=== PATIENT | male | born 2000 | race Caucasian/White ===

== ENCOUNTER 2019-10-03 14:51 | Emergency (ER) | payer OTHER, SELFPAY ==
--- NOTE | ~2019-10-03 | XR_ITS ---
EXAMINATION: XR hand RT min 3V DATE: 10/03/2019 15:14 INDICATION: Right hand injury and pain. TECHNIQUE: 3 views of right hand were obtained. COMPARISON: None. FINDINGS: There is an oblique fracture of neck of fourth metacarpal. The distal fracture fragment dem onstrates impaction and 10 degrees palmar angulation. Joint spaces are normal. IMPRESSION: 1. Oblique fracture of neck of fourth metacarpal. Reviewed, dictated and finalized at location A.
[2019-10-03 15:05] VITALS: BP 132/74; PULSE 82; RESP 16; TEMP 36.8; O2SAT 98
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
== END 2019-10-03 15:48 | disposition home or self-care (01) ==
PROVIDERS: Emergency Provider Nurse Practitioner Family
DX: S62.334A Displaced fracture of neck of fourth metacarpal bone, right hand, initial encounter for closed fracture (principal); R03.0 Elevated blood-pressure reading, without diagnosis of hypertension; W22.8XXA Striking against or struck by other objects, initial encounter
CPT/HCPCS: 29130; 73130; 99214; G0463

== ENCOUNTER 2020-11-14 13:37 | Emergency (ER) | payer OTHER, SELFPAY ==
[2020-11-14 13:45] VITALS: BP 132/77; PULSE 99; RESP 18; TEMP 36.7; O2SAT 100
[2020-11-14 14:08] LABS: Add Urine Microscopic? NO; Appearance Urine Clear (Clear); Bilirubin Urine Negative (Negative); Blood Urine Negative (Negative); Color Urine Yellow (Yellow); Glucose Urine UA Negative (Negative); Ketones Urine Negative (Negative); Leukocyte Esterase Ur Negative LEU/UL (Negative); Nitrate Urine Negative (Negative); Protein Urine Negative (Negative); Specific Grav Ur 1.023 (1.001-1.035); Urobilinogen Urine Negative mg/dL (<2.0)
[2020-11-14] MEDS: cefTRIAXone 1 GM VIAL 0.5 GM IM (14:41)
[2020-11-14] MEDS: LIDOCAINE HCL 1% LOCAL INJ 20 ML VIAL 2.1 ML XX (14:41)
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
[2020-11-14 15:17] VITALS: BP 122/78; PULSE 70; RESP 18; O2SAT 99
== END 2020-11-14 15:19 | disposition home or self-care (01) ==
PROVIDERS: Emergency Medicine Emergency Medical Services; Emergency Provider Emergency Medicine
DX: N34.2 Other urethritis (principal); J45.909 Unspecified asthma, uncomplicated
CPT/HCPCS: 81003; 87491; 87591; 96372; 99283; J0696

== ENCOUNTER 2021-01-28 17:47 | Emergency (ER) | payer OTHER, SELFPAY ==
[2021-01-28 17:56] VITALS: BP 128/68; PULSE 87; RESP 18; TEMP 36.8; O2SAT 100
[2021-01-28 18:32] VITALS: BP 128/68; PULSE 87; RESP 16; TEMP 36.8; O2SAT 100
[2021-01-28 19:30] LABS: Add Urine Microscopic? YES; Appearance Urine Clear (Clear); Bacteria Urine Trace /hpf; Bilirubin Urine Negative (Negative); Blood Urine Negative (Negative); Color Urine Yellow (Yellow); Glucose Urine UA Negative (Negative); Ketones Urine Negative (Negative); Leukocyte Esterase Ur Negative LEU/UL (Negative); Mucus Urine Few /lpf; Nitrate Urine Negative (Negative); Protein Urine 1+ mg/dL (Negative); Squamous Epithelial Cell Urine Rare /hpf (Few); WBC Urine 0-3 /hpf
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
[2021-01-28] MEDS: cefTRIAXone 1 GM VIAL 0.5 GM IM (20:06)
[2021-01-28] MEDS: LIDOCAINE HCL 1% LOCAL INJ 20 ML VIAL (20:06)
[2021-01-28 20:17] VITALS: BP 123/88; PULSE 73; RESP 18; O2SAT 100
== END 2021-01-28 20:18 | disposition home or self-care (01) ==
PROVIDERS: Physician Assistant; Emergency Provider Emergency Medicine
DX: Z20.2 Contact with and (suspected) exposure to infections with a predominantly sexual mode of transmission (principal); J45.909 Unspecified asthma, uncomplicated
CPT/HCPCS: 81001; 87491; 87591; 87661; 96372; 99283; J0696

== ENCOUNTER 2021-02-22 23:30 | Emergency (ER) | payer OTHER, SELFPAY ==
--- NOTE | ~2021-02-22 | US_ITS ---
EXAMINATION: US scrotum doppler DATE: 02/23/2021 00:52 INDICATION: Testicular pain. TECHNIQUE: Grayscale and Doppler ultrasound images of the testes were obtained. COMPARISON: None. FINDINGS: The right testis measures 4.7 x 2.9 x 2.3 cm. The left testis measures 4.7 x 2.8 x 2.0 cm. There is a small calcification in left testis. There is normal vascular flow to both testes. The righ t epididymis is normal with normal vascular flow. The left epididymis is normal with normal vascular flow. There is no varicocele or hydrocele. IMPRESSION: 1. Normal testes. Reviewed, dictated and finalized at location A. IMPRESSION: 1. Normal testes.
[2021-02-22 23:33] VITALS: BP 148/90; PULSE 91; RESP 18; TEMP 37.1; O2SAT 99
--- NOTE | 2021-02-22 23:53 | PC.NURSE ---
states testicles are not swollen just sore x 2 weeks states pain causes numbness left leg
[2021-02-23 00:22] LABS: Add Urine Microscopic? YES; Amorphous Sediment Urine Few; Appearance Urine Cloudy (Clear); Bacteria Urine Trace /hpf; Bilirubin Urine Negative (Negative); Blood Urine Negative (Negative); Color Urine Yellow (Yellow); Glucose Urine UA Negative (Negative); Ketones Urine Negative (Negative); Leukocyte Esterase Ur Negative LEU/UL (Negative); Nitrate Urine Negative (Negative); Protein Urine Negative (Negative); Specific Grav Ur 1.017 (1.001-1.035); Urobilinogen Urine Negative mg/dL (<2.0)
[2021-02-23] MEDS: DOXYCYCLINE HYCLATE 100 MG TABLET PO (00:57)
[2021-02-23] MEDS: cefTRIAXone 1 GM VIAL 0.5 GM IM (00:58)
[2021-02-23] MEDS: LIDOCAINE HCL 1% LOCAL INJ 20 ML VIAL (00:58)
[2021-02-23] MEDS: metroNIDAZOLE 250 MG TABLET 2000 MG PO (00:58)
--- NOTE | 2021-02-23 01:07 | ED.GENADULT ---
HPI - General Adult General Chief complaint: Urogenital-Male Stated complaint: testicular pain Time Seen by Provider: 02/22/21 23:52 History of Present Illness HPI narrative: Patient 18-year-old gentleman who presents the emergency department with chief complaint of testicle pain. The patient reports that about a month ago he was seen in the emergency department and treated as a possible STI the patient reports he has had continual pain in his testicles particularly in the posterior aspect of the left testicle. Patient states pain is worse with movement denies any dysuria denies any penile discharge. Related Data Allergies Allergy/AdvReac Type Severity Reaction Status Date / Time No Known Allergies Allergy Verified 11/14/20 13:52 Review of Systems Review of Systems: A 10 system review of systems was completed on the patient and is negative except for what is stated in the HPI. Nursing and ancillary documentation was reviewed. PMFSH Past Medical History Medical History Asthma Surgical History Surgical History No significant past surgical history Family History Family History Father Alive and well Mother Alive and well Social History Social History Smoking status: Never smoker Additional smoking assessment comments: Attmepted to smoke but it gives him anxiety Alcohol intake: current Substance use: never Exam Narrative: GENERAL: Well-appearing, well-nourished, and in no acute distress. HEAD: Normocephalic, atraumatic. EYES: PERRLA and EOMI. ENT: Nares clear, no rhinorrhea or epistaxis. Mucous membranes moist. NECK: Supple. CHEST: Clear to auscultation. No respiratory distress. HEART: Regular rate and rhythm. No murmur heard. Normal peripheral pulses. ABDOMEN: Soft, nontender, nondistended, normal active bowel sounds. : There is tenderness to palpation in the scrotum there is no erythema there is no fluctuance there is no crepitance there is no necrotic tissue. EXTREMITIES: Normal range of motion. No edema. SKIN: Warm, dry, no rash. NEURO: No focal deficits. Alert and oriented x3. PSYCH: Normal mood and affect. Course Vital Signs Vital signs: Vital Signs Temperature 37.1 C 02/22/21 23:33 Pulse Rate 91 02/22/21 23:33 Respiratory Rate 18 02/22/21 23:33 Blood Pressure 148/90 H 02/22/21 23:33 Pulse Oximetry 99 02/22/21 23:33 Temperature 37.1 C 02/22/21 23:33 Pulse Rate 91 02/22/21 23:33 Respiratory Rate 18 02/22/21 23:33 Blood Pressure 148/90 H 02/22/21 23:33 Pulse Oximetry 99 02/22/21 23:33 Medical Decision Making Vital Signs Vital Signs: Vital Signs Temperature 37.1 C 02/22/21 23:33 Pulse Rate 91 02/22/21 23:33 Respiratory Rate 18 02/22/21 23:33 Blood Pressure 148/90 H 02/22/21 23:33 Pulse Oximetry 99 02/22/21 23:33 Temperature 37.1 C 02/22/21 23:33 Pulse Rate 91 02/22/21 23:33 Respiratory Rate 18 02/22/21 23:33 Blood Pressure 148/90 H 02/22/21 23:33 Pulse Oximetry 99 02/22/21 23:33 Lab Data Labs: Lab Results 02/23/21 02/23/21 Range/Units 00:05 00:05 Urine Color Yellow (Yellow) Urine Appearance Cloudy H (Clear) Urine pH 8.0 (5.0-9.0) Ur Specific [place] 1.017 (1.001-1.035) Urine Protein Negative (Negative) mg/dL Urine Glucose (UA) Negative (Negative) mg/dL Urine Ketones Negative (Negative) mg/dL Ur Blood (Man) Negative (Negative) Urine Nitrate Negative (Negative) Urine Bilirubin Negative (Negative) Urine Urobilinogen Negative (<2.0) mg/dL Leukocyte Esterase Rfl Negative (Negative) MIRIAN/UL Urine RBC 3-5 H (0-2) /hpf Amorphous Sediment Few H (None) Urine Bacteria Trace /hpf C.trachomatis RN
[2021-02-23 01:33] VITALS: BP 129/82; PULSE 86; RESP 18; O2SAT 99
== END 2021-02-23 01:39 | disposition home or self-care (01) ==
PROVIDERS: Emergency Provider Emergency Medicine
DX: N34.2 Other urethritis (principal); J45.909 Unspecified asthma, uncomplicated
CPT/HCPCS: 76870; 81001; 87491; 87591; 93976; 96372; 99284; A9270; J0696

== ENCOUNTER 2021-03-28 18:45 | Emergency (ER) | payer OTHER, SELFPAY ==
--- NOTE | ~2021-03-28 | XR_ITS ---
EXAMINATION: XR chest 2V 03/28/2021 19:23 INDICATION: Midsternal chest pain and cough PROCEDURE: 2 view chest COMPARISON: No prior studies for comparison. FINDINGS: The lungs are clear. The cardiomediastinal silhouette is within normal limits. There are no pleural effusions. There is no pneumothorax suspected. IMPRESSION: 1: NO ACUTE CARDIOPULMONARY DISEASE. Reviewed, dictated and finalized at location A. KJACK DEALER
[2021-03-28 18:47] VITALS: BP 133/90; PULSE 88; RESP 16; TEMP 36.5; O2SAT 99
--- NOTE | 2021-03-28 18:52 | ECG_ITS ---
Measurements Intervals [place] Rate: 87 P: 61 [place]: 132 QRS: 74 QRSD: 106 T: 36 QT: 346 QTc: 417 Interpretive Statements SINUS RHYTHM NORMAL ECG Electronically Signed On 03-29-2021 9:24:05 HEAD OF STOCK by Frank Sellers D.O.
[2021-03-28 19:20] LABS: Basophils Absolute Auto 0.1 K/mm3 (0.0-0.1); Basophils Percent Auto 0.5 % (0.2-1.2); Eosinophils Absolute Auto 0.3 K/mm3 (0-0.3); Eosinophils Percent Auto 2.8 % (0-4.4); Hematocrit 45.2 % (42.0-52.0); Hemoglobin 16.4 g/dL (14.0-18.0); Immature Granulocyte Absolute 0.04 K/mm3 (0.00-0.031); Immature Granulocyte Percent A 0.4 % (0-0.5); Lymphocytes Absolute Auto 2.07 K/mm3 (0.9-3.2); Lymphocytes Percent Auto 20.9 % (18.3-44.2); Mean Corpuscular HGB Conc 36.3 g/dl (32-36); Mean Corpuscular Hemoglobin 32.8 pg (26-34); Mean Corpuscular Volume 90.4 fl (80-100); Mean Platelet Volume 10.4 fl (7.4-10.4); Monocytes Absolute Auto 0.8 K/mm3 (0.1-0.6); Monocytes Percent Auto 7.9 % (2.6-8.5); Neutrophils Absolute Auto 6.7 K/mm3 (1.3-6.7); Neutrophils Percent Auto 67.5 % (45.5-73.1); Platelet Count Result 286 k/mm3 (150-375); Red Cell Distribution Width 11.9 % (11.5-14.5); White Blood Count 9.9 K/mm3 (4.5-10.0)
[2021-03-28 19:26] LABS: Partial Thromboplastin Time 27.8 SECONDS (22.3-36.8); Prothrombin Time 12.6 Seconds (11.1-14.7)
[2021-03-28 19:28] LABS: Alanine Aminotransferase 24 U/L (4-50); Albumin Level 4.6 g/dL (3.5-5.1); Alkaline Phosphatase 150 U/L (38-126); Anion Gap 8 mmol/L (8-16); Aspartate Amino Transferase 29 U/L (17-59); Bilirubin,Total 1.2 mg/dL (0.2-1.3); Blood Urea Nitrogen 12 mg/dL (9-20); Calcium 9.6 mg/dL (8.4-10.2); Carbon Dioxide 31 mmol/L (22-30); Chloride 102 mmol/L (98-107); Estimated CRCL calculation 99 ml/min; Estimated Glomerular Filt Rate > 60; Glucose 112 mg/dL (65-110); Lipase 48 U/L (23-300); Potassium 3.3 mmol/L (3.4-5.0); Sodium 141 mmol/L (137-145)
[2021-03-28 19:36] VITALS: PULSE 103
[2021-03-28 19:39] LABS: Troponin I < 0.012 ng/mL (0.000-0.034)
--- NOTE | 2021-03-28 19:46 | ED.CHESTPAIN ---
HPI - Chest Pain General Chief Complaint: Chest Pain <Hayde Morrell PA-C - Last Filed: 03/28/21 19:51> Stated Complaint: chest pain <GHADA Sosa Last Filed: 03/28/21 19:51> Time Seen by Provider: 03/28/21 19:09 <Hayde Morrell PA-C - Last Filed: 03/28/21 19:51> Source: patient <Hayde GHADA Doyle Last Filed: 03/28/21 19:51> Mode of arrival: ambulatory <GHADA Sosa Last Filed: 03/28/21 19:51> Limitations: no limitations <GHADA Sosa Last Filed: 03/28/21 19:51> History of Present Illness HPI narrative: This is a 20-year-old male that presents the emergency department for an episode of chest pain a couple of hours prior to arrival. Reports a dull ache in the chest that lasted about 10 minutes. Resolved without intervention. He was just sitting on his couch when it happened. No associated symptoms. Denies fever, cough, shortness of breath, or lower extremity edema. <Hayde Morrell PA-C - Last Filed: 03/28/21 19:51> Related Data Home Medications: Home Medications Medication Instructions Recorded Confirmed No Home Medications 03/28/21 03/28/21 <Hayde Morrell PA-C - Last Filed: 03/28/21 19:51> Allergies/Adverse Reactions: Allergies Allergy/AdvReac Type Severity Reaction Status Date / Time No Known Allergies Allergy Verified 03/28/21 18:56 <GHADA Sosa Last Filed: 03/28/21 19:51> Review of Systems Review of Systems: CONSTITUTIONAL: Denies fever CARDIOVASCULAR: Denies current chest pain RESPIRATORY: Denies cough or dyspnea. <GHADA Sosa Last Filed: 03/28/21 19:51> All systems reviewed & are unremarkable except as noted in HPI and below <GHADA Sosa Last Filed: 03/28/21 19:51> [facility] Past Medical History Medical History: Medical History Asthma <Hayde Morrell PA-C - Last Filed: 03/28/21 19:51> Surgical History Surgical History: Surgical History No significant past surgical history <Hayde Morrell PA-C - Last Filed: 03/28/21 19:51> Family History Family History: Family History Father Alive and well Mother Alive and well <Hayde Morrell PA-C - Last Filed: 03/28/21 19:51> Social History Social History: Social History Smoking status: Never smoker Additional smoking assessment comments: Attmepted to smoke but it gives him anxiety Alcohol intake: current Substance use: never <Hayde Morrell PA-C - Last Filed: 03/28/21 19:51> Exam Narrative: GENERAL: Well-appearing, well-nourished, and in no acute distress. HEAD: Normocephalic, atraumatic. EYES: EOMI. CHEST: Clear to auscultation. No respiratory distress. No wheezes rales or rhonchi HEART: Regular rate and rhythm. No murmur heard. Normal peripheral pulses. ABDOMEN: Soft, nontender, nondistended, normal active bowel sounds. EXTREMITIES: Normal range of motion. No edema. SKIN: Warm, dry, no rash. NEURO: No focal deficits. Alert and oriented x3. PSYCH: Normal mood and affect <Hayde Morrell PA-C - Last Filed: 03/28/21 19:51> Course CHEMISTRY LABORATORY TECHNICIAN/PA Physician Supervision I did not see this patient nor was the care plan discussed with me. I was available for evaluation and consultation, I agree with the documentation <Marco A Lockwood MD - Last Filed: 03/28/21 22:08> Vital Signs Vital signs: Vital Signs Temperature 36.5 C 03/28/21 18:47 Pulse Rate 88 03/28/21 18:47 Respiratory Rate 16 03/28/21 18:47 Blood Pressure 133/90 03/28/21 18:47 Pulse Oximetry 99 03/28/21 18:47 Temperature 36.6 C 03/28/21 20:03 Pulse Rate 82 03/28/21 20:03 Respiratory Rate 16 03/28/21 20:03 Blood Pressure 139/95 H 1
[2021-03-28 20:03] VITALS: BP 139/95; PULSE 82; RESP 16; TEMP 36.6; O2SAT 98
[2021-03-28] MEDS: POTASSIUM CHLORIDE 20 MEQ TABLET 40 MEQ PO (20:03)
== END 2021-03-28 20:33 | disposition home or self-care (01) ==
PROVIDERS: Emergency Medicine; Emergency Provider Emergency Medicine
DX: R07.9 Chest pain, unspecified (principal); E87.6 Hypokalemia; J45.909 Unspecified asthma, uncomplicated
CPT/HCPCS: 36415; 71046; 80053; 83690; 84484; 85025; 85610; 85730; 93005; 99284; A9270

== ENCOUNTER 2021-05-16 19:11 | Emergency (ER) | payer OTHER, SELFPAY ==
--- NOTE | ~2021-05-16 | XR_ITS ---
EXAMINATION: XR nasal bones min 3V EXAM DATE: 05/16/2021 20:53 INDICATION: pain status post fall, nasal injury. TECHNIQUE: Frontal, bilateral lateral projections of the nasal bones. There are no prior studies for comparison. FINDINGS: No acute nasal bone fracture. No radiopaque foreign bodies identified. IMPRESSION: No acute nasal bone fracture. Reviewed, dictated and finalized at location . PATIONAL HEALTH NURSE SUPERVISOR
[2021-05-16 19:39] VITALS: BP 135/81; PULSE 94; RESP 16; TEMP 36.7; O2SAT 99
--- NOTE | 2021-05-16 20:43 | ED.GENADULT ---
HPI - General Adult General Chief complaint: Head Injury Stated complaint: nasal injury Time Seen by Provider: 05/16/21 20:43 History of Present Illness HPI narrative: Patient 18-year-old gentleman who presents the emergency department with chief complaint of nasal injury. Patient reports last night he fell patient reports that his nose is deformed he had some nasal bleeding last night the patient denies loss of consciousness denies any other injuries. Patient reports symptoms are worse with movement and improved with rest Related Data Allergies Allergy/AdvReac Type Severity Reaction Status Date / Time No Known Allergies Allergy Verified 05/16/21 19:42 Review of Systems Review of Systems: A 10 system review of systems was completed on the patient and is negative except for what is stated in the HPI. Nursing and ancillary documentation was reviewed. PMFSH Past Medical History Medical History Asthma Surgical History Surgical History No significant past surgical history Family History Family History Father Alive and well Mother Alive and well Social History Social History Smoking status: Never smoker Additional smoking assessment comments: Attmepted to smoke but it gives him anxiety Alcohol intake: current Substance use: never Exam Narrative: GENERAL: Well-appearing, well-nourished, and in no acute distress. HEAD: Normocephalic, atraumatic. EYES: PERRLA and EOMI. ENT: Nares clear, no rhinorrhea. Mucous membranes moist. There is dried blood in the nostril no septal hematoma, there is a deformity of the nasal structure NECK: Supple. CHEST: Clear to auscultation. No respiratory distress. HEART: Regular rate and rhythm. No murmur heard. Normal peripheral pulses. ABDOMEN: Soft, nontender, nondistended, normal active bowel sounds. EXTREMITIES: Normal range of motion. No edema. SKIN: Warm, dry, no rash. NEURO: No focal deficits. Alert and oriented x3. PSYCH: Normal mood and affect. Course Vital Signs Vital signs: Vital Signs Temperature 36.7 C 05/16/21 19:39 Pulse Rate 94 05/16/21 19:39 Respiratory Rate 16 05/16/21 19:39 Blood Pressure 135/81 05/16/21 19:39 Pulse Oximetry 99 05/16/21 19:39 Temperature 36.7 C 05/16/21 19:39 Pulse Rate 94 05/16/21 19:39 Respiratory Rate 16 05/16/21 19:39 Blood Pressure 135/81 05/16/21 19:39 Pulse Oximetry 99 05/16/21 19:39 Medical Decision Making Vital Signs Vital Signs: Vital Signs Temperature 36.7 C 05/16/21 19:39 Pulse Rate 94 05/16/21 19:39 Respiratory Rate 16 05/16/21 19:39 Blood Pressure 135/81 05/16/21 19:39 Pulse Oximetry 99 05/16/21 19:39 Temperature 36.7 C 05/16/21 19:39 Pulse Rate 94 05/16/21 19:39 Respiratory Rate 16 05/16/21 19:39 Blood Pressure 135/81 05/16/21 19:39 Pulse Oximetry 99 05/16/21 19:39 Discharge Plan Discharge Clinical Impression: Contusion of nose Patient Disposition: Home, Self-Care Condition: Stable Instructions: Antibiotic Form, Nasal Fracture (ED) Additional Instructions: The x-ray shows no evidence of displaced fracture. Prescriptions: New cephalexin 500 mg capsule 500 mg PO QID 7 Days Qty: 28 RF: 0 Follow-up/Referrals: Rashel Novak MD [Physician] - PHYSICIAN,PROFESSIONAL WRESTLER [Primary Care Provider] - Enmanuel Ellison MD [Physician] - Time of Disposition: 21:02
[2021-05-16 21:23] VITALS: BP 135/93; PULSE 83; RESP 16; O2SAT 97
== END 2021-05-16 21:24 | disposition home or self-care (01) ==
LOC: ANHED 21:15
PROVIDERS: Emergency Provider Emergency Medicine
DX: S00.33XA Contusion of nose, initial encounter (principal); J45.909 Unspecified asthma, uncomplicated; W19.XXXA Unspecified fall, initial encounter
CPT/HCPCS: 70160; 99283

== ENCOUNTER 2021-06-18 05:57 | Emergency (ER) | payer OTHER, SELFPAY ==
--- NOTE | ~2021-06-18 | XR_ITS ---
EXAMINATION: XR chest 2V DATE: 06/18/2021 06:17 INDICATION: Chest pain TECHNIQUE: PA and lateral views of the chest are obtained. COMPARISON: 03/28/2021 FINDINGS: The lungs are free of acute opacities. There is no pleural effusion or pneumothorax. The ca rdiomediastinal silhouette is normal. The visualized bones and soft tissues are unremarkable. IMPRESSION: 1. No acute cardiopulmonary abnormality. Reviewed, dictated and finalized at location A. T RELATION OFFICER
--- NOTE | 2021-06-18 06:04 | ECG_ITS ---
Measurements Intervals [place] Rate: 83 P: 61 OK: 140 QRS: 56 QRSD: 107 T: 25 QT: 332 QTc: 390 Interpretive Statements SINUS RHYTHM ATRIAL PREMATURE COMPLEXES BORDERLINE ECG Electronically Signed On 06-18-2021 9:00:02 RECREATION FACILITY ATTENDANT by Frank Sellers D.O.
[2021-06-18 06:05] VITALS: BP 125/84; PULSE 82; RESP 18; TEMP 36.4; O2SAT 100
[2021-06-18 06:11] VITALS: PULSE 88
[2021-06-18] MEDS: ASPIRIN 81 MG CHEWABLE TABLET 324 MG PO (06:18)
[2021-06-18 06:44] LABS: Basophils Percent Auto 0.4 % (0.2-1.2); Eosinophils Absolute Auto 0.2 K/mm3 (0-0.3); Eosinophils Percent Auto 1.6 % (0-4.4); Hematocrit 43.7 % (42.0-52.0); Hemoglobin 15.8 g/dL (14.0-18.0); Immature Granulocyte Absolute 0.04 K/mm3 (0.00-0.031); Immature Granulocyte Percent A 0.4 % (0-0.5); Lymphocytes Absolute Auto 2.29 K/mm3 (0.9-3.2); Lymphocytes Percent Auto 23.6 % (18.3-44.2); Mean Corpuscular HGB Conc 36.2 g/dl (32-36); Mean Corpuscular Hemoglobin 32.6 pg (26-34); Mean Corpuscular Volume 90.3 fl (80-100); Monocytes Absolute Auto 0.7 K/mm3 (0.1-0.6); Monocytes Percent Auto 7.2 % (2.6-8.5); Neutrophils Absolute Auto 6.5 K/mm3 (1.3-6.7); Neutrophils Percent Auto 66.8 % (45.5-73.1); Platelet Count Result 257 k/mm3 (150-375); Red Blood Count 4.84 M/mm3 (4.6-6.20); Red Cell Distribution Width 11.9 % (11.5-14.5); White Blood Count 9.7 K/mm3 (4.5-10.0)
[2021-06-18 06:55] LABS: Prothrombin Time 13.1 Seconds (11.1-14.7)
[2021-06-18 06:56] LABS: Partial Thromboplastin Time 29.1 SECONDS (22.3-36.8)
[2021-06-18 06:58] LABS: Alanine Aminotransferase 31 U/L (4-50); Albumin Level 4.6 g/dL (3.5-5.1); Alkaline Phosphatase 127 U/L (38-126); Anion Gap 7 mmol/L (8-16); Aspartate Amino Transferase 32 U/L (17-59); Bilirubin,Total 1.6 mg/dL (0.2-1.3); Blood Urea Nitrogen 12 mg/dL (9-20); Calcium 9.8 mg/dL (8.4-10.2); Carbon Dioxide 27 mmol/L (22-30); Chloride 101 mmol/L (98-107); Estimated CRCL calculation 113 ml/min; Estimated Glomerular Filt Rate > 60; Glucose 104 mg/dL (65-110); Lipase 68 U/L (23-300); Potassium 3.9 mmol/L (3.4-5.0); Sodium 135 mmol/L (137-145)
--- NOTE | 2021-06-18 07:00 | ED.CHESTPAIN ---
HPI - Chest Pain General Chief Complaint: Chest Pain Stated Complaint: chest pain since midnight Time Seen by Provider: 06/18/21 06:52 Source: patient Mode of arrival: ambulatory Limitations: no limitations History of Present Illness HPI narrative: Pt presents with dull left sided CP that started at 1200 midnight and lasted about 20 minutes and resolved then returned a couple of hours later. Pt says it has now resoved agian. Pt denies precipitating or relieving factors. MD complaint: chest pain Prior episodes: No Onset: during rest Pain location: left chest Pain radiation: none Severity: mild Quality: dull Relieving factors: nothing Exacerbating factors: nothing Treatment prior to arrival: aspirin Risk Factors Coronary artery disease risk factors: none Thoracic aortic dissection risk factors: none Related Data Allergies Allergy/AdvReac Type Severity Reaction Status Date / Time No Known Allergies Allergy Verified 06/18/21 06:10 Review of Systems Constitutional: Constitutional: Reports as per HPI [facility] Past Medical History Medical History Asthma Surgical History Surgical History No significant past surgical history Family History Family History Father Alive and well Mother Alive and well Social History Social History Smoking status: Never smoker Additional smoking assessment comments: Attmepted to smoke but it gives him anxiety Alcohol intake: current Substance use: never Exam Const: General: no acute distress Orientation/consciousness: patient oriented x3 HENMT: Head: normal to inspection Eyes: Conjunctivae: conjunctivae normal EOM: EOMs intact bilaterally Chest: Chest palpation & inspection: tenderness (tender left shest to palpation which reproduces pain) Resp: Effort & Inspection: normal respiratory effort Cardio: Rate: regular rate Rhythm: regular rhythm GI: GI Palp: Yes Soft to palpation Auscultation: normal bowel sounds Skin: General skin exam: normal color Rashes: no rashes Neuro: General: patient oriented x3, moves all extremities, no focal motor deficits and CN's II-XI intact bilaterally Speech: normal speech Extrem: General: normal to inspection Psych: Appearance: grossly normal Mental Status: mental status grossly normal Affect: normal affect Thought content: Yes Normal thought content present Course Course Emergency Course: Pt pain free felling better. Has recently stopped drinking and believes that's the cause of his slightly elevated LFT's will follow up for recheck. Vital Signs Vital signs: Vital Signs Temperature 97.6 F 06/18/21 06:05 Pulse Rate 82 06/18/21 06:05 Respiratory Rate 18 06/18/21 06:05 Blood Pressure 125/84 06/18/21 06:05 Pulse Oximetry 100 06/18/21 06:05 Temperature 97.6 F 06/18/21 06:05 Pulse Rate 90 06/18/21 07:21 Respiratory Rate 18 06/18/21 07:21 Blood Pressure 141/68 H 06/18/21 07:21 Pulse Oximetry 98 06/18/21 07:21 MDM - Chest Pain Lab Data Result diagrams: 06/18/21 06:24 06/18/21 06:24 Labs: Lab Results 06/18/21 06/18/21 06/18/21 Range/Units 06:24 06:24 06:24 WBC 9.7 (4.5-10.0) K/mm3 RBC 4.84 (4.6-6.20) M/mm3 Hgb 15.8 (14.0-18.0) g/dL Hct 43.7 (42.0-52.0) % MCV 90.3 (80-100) fl MCH 32.6 (26-34) pg MCHC 36.2 H (32-36) g/dl RDW 11.9 (11.5-14.5) % Plt Count 257 (150-375) k/mm3 MPV 11.0 H (7.4-10.4) fl Immature Gran % (Auto) 0.4 (0-0.5) % Neut % (Auto) 66.8 (45.5-73.1) % Lymph % (Auto) 23.6 (18.3-44.2) % Jerome % (Auto) 7.2 (2.6-8.5) % Eos % (Auto) 1.6 (0-4.4) % Baso % (Auto) 0.4 (0.2-1.2) % Lymph # (Auto) 2.29 (0.9-3.2) K/mm3 Jerome # (
[2021-06-18 07:09] LABS: Troponin I < 0.012 ng/mL (0.000-0.034)
[2021-06-18] MEDS: KETOROLAC 15 MG/ML VIAL (*BKC) IV PUSH (07:19)
[2021-06-18 07:21] VITALS: BP 141/68; PULSE 90; RESP 18; O2SAT 98
== END 2021-06-18 07:47 | disposition home or self-care (01) ==
PROVIDERS: Emergency Medicine; Emergency Provider Emergency Medicine
DX: R07.89 Other chest pain (principal); J45.909 Unspecified asthma, uncomplicated
CPT/HCPCS: 36415; 71046; 80053; 83690; 84484; 85025; 85610; 85730; 93005; 96374; 99284; A9270; J1885

== ENCOUNTER 2021-06-20 04:33 | Emergency (ER) | payer OTHER, SELFPAY ==
[2021-06-20 04:39] VITALS: BP 150/79; PULSE 88; RESP 18; TEMP 36.7; O2SAT 99
--- NOTE | 2021-06-20 05:02 | ED.MALEGU ---
HPI - Male Genitourinary General Chief complaint: Urogenital-Male Stated complaint: UTI Time Seen by Provider: 06/20/21 04:44 History of Present Illness HPI Narrative: Patient is a 20-year-old male who presents ER with testicular pain. Bilateral. Ongoing for 4 days. Reports he was seen in the ER for chest pain few days ago and forgot to see anything about it. Reports he has been having some discomfort at the tip of his penis when he urinates. No urethral discharge. Last sexual activity was 3 weeks ago. Unsure if you were condom. Reports he underwent STD testing in a clinic in [place] 1 and half weeks ago. Over the time he received antibiotics for possible infection. Reports he was then given a phone call that he tested negative for gonorrhea and chlamydia. No swelling to his testicles. He does have discomfort that goes into his thighs related to this. No low back pain or flank pain. No urinary frequency urgency or dysuria. No blood in urine. Denies abdominal pain. Related Data Allergies Allergy/AdvReac Type Severity Reaction Status Date / Time No Known Allergies Allergy Verified 06/20/21 05:36 Review of Systems Review of Systems: All systems reviewed & are unremarkable except as noted in HPI and below Constitutional: Constitutional: Denies chills, Denies fever(s) and Denies weakness Cardiovascular: Cardiovascular: Denies chest pain, Denies rapid heart rate and Denies radiating jaw, neck or arm pain Respiratory: Respiratory: Denies cough and Denies dyspnea Gastrointestinal: Gastrointestinal: Denies abdominal pain, Denies nausea and Denies vomiting Genitourinary: Genitourinary: Denies hematuria, Denies genital lesions, Reports dysuria, Denies penile discharge, Reports testicular pain and Denies urinary frequency PMFSH Past Medical History Medical History Asthma Surgical History Surgical History No significant past surgical history Family History Family History Father Alive and well Mother Alive and well Social History Social History Smoking status: Never smoker Additional smoking assessment comments: Attmepted to smoke but it gives him anxiety Alcohol intake: current Substance use: never Exam Narrative: GENERAL: Well-appearing, well-nourished, and in no acute distress. HEAD: Normocephalic, atraumatic. ENT: Mucous membranes moist. CHEST: Clear to auscultation. No respiratory distress. HEART: Regular rate and rhythm. Normal peripheral pulses. ABDOMEN: Soft, nontender, nondistended. No CVA tenderness. : Normal-appearing external genitalia. Penis normal without lesions and no urethral discharge. Testicles nontender and nonedematous bilaterally. No abnormality to the scrotum. EXTREMITIES: Normal range of motion. No edema. SKIN: Warm, dry, no rash. NEURO: Alert and oriented x3. Course Course Emergency Course: Normal exam. Normal UA. Patient denies any back discomfort or trauma. Recommend follow-up with a primary care physician who can give specialty referral if need be. Patient will continue to wear tighter fitting underwear and take anti-inflammatory medications. Vital Signs Vital signs: Vital Signs Temperature 98.0 F 06/20/21 04:39 Pulse Rate 88 06/20/21 04:39 Respiratory Rate 18 06/20/21 04:39 Blood Pressure 150/79 H 06/20/21 04:39 Pulse Oximetry 99 06/20/21 04:39 Temperature 98.0 F 06/20/21 04:39 Pulse Rate 88 06/20/21 04:39 Respiratory Rate 18 06/20/21 04:39 Blood Pressure 150/79 H 06/20/21 04:39 Pulse Oximetry 99 06/20/21 04:39 MDM - Male Genitourinary Lab Data Labs: Lab Results 06/20/21 Range/Units 05:19 Urine Color Straw (Yellow) Urine Appearance Clear (Clear) Urine pH 6.0
[2021-06-20 05:44] LABS: Add Urine Microscopic? NO; Appearance Urine Clear (Clear); Bilirubin Urine Negative (Negative); Blood Urine Negative (Negative); Color Urine Straw (Yellow); Glucose Urine UA Negative (Negative); Ketones Urine Negative (Negative); Leukocyte Esterase Ur Negative LEU/UL (Negative); Nitrate Urine Negative (Negative); Protein Urine Negative (Negative); Specific Grav Ur 1.009 (1.001-1.035); Urobilinogen Urine Negative mg/dL (<2.0)
[2021-06-20 06:38] VITALS: BP 121/81; PULSE 87; RESP 16; O2SAT 98
== END 2021-06-20 06:10 | disposition home or self-care (01) ==
PROVIDERS: Emergency Provider Emergency Medicine
DX: N50.819 Testicular pain, unspecified (principal); J45.909 Unspecified asthma, uncomplicated
CPT/HCPCS: 81003; 99283

== ENCOUNTER 2021-06-30 20:26 | Emergency (ER) | payer OTHER, SELFPAY ==
--- NOTE | ~2021-06-30 | US_ITS ---
US scrotum doppler DATE: 06/30/2021 22:51 INDICATION: Bilateral groin pain for 2 weeks TECHNIQUE: Real-time and color flow imaging and Doppler analysis of the scrotal contents COMPARISON: 02/23/2021 scrotal ultrasound/Doppler examination FINDINGS: The right testicle measures 4.6 x 3.2 x 2.1 cm. The left testicle measures 3.9 x 3.3 x 1.8 cm. There is a benign calcification of the left testicle. No testicular mass lesion or torsion is evident. There is homogeneous echotexture of the testicles an d symmetric color flow signal and Doppler signal at the testicles. There is a left epididymal cyst measuring up to 6 mm. Mild left varicocele. No hydroceles. IMPRESSION: No testicular torsion or testicular mass lesion. Reviewed, dictated and finalized at Location [facility]. Reviewed, dictated and finalized at location A. PEDDLER
[2021-06-30 20:35] VITALS: BP 153/87; PULSE 85; RESP 18; TEMP 36.7; O2SAT 100
[2021-06-30 21:33] LABS: Add Urine Microscopic? NO; Appearance Urine Clear (Clear); Bilirubin Urine Negative (Negative); Blood Urine Negative (Negative); Color Urine Straw (Yellow); Glucose Urine UA Negative (Negative); Ketones Urine Negative (Negative); Leukocyte Esterase Ur Negative LEU/UL (Negative); Nitrate Urine Negative (Negative); Protein Urine Negative (Negative); Specific Grav Ur 1.012 (1.001-1.035); Urobilinogen Urine Negative mg/dL (<2.0)
--- NOTE | 2021-06-30 21:50 | ED.MALEGU ---
HPI - Male Genitourinary General Chief complaint: Urogenital-Male <Emilia Trivedi PA-C - Last Filed: 07/01/21 04:45> Stated complaint: request check up <GHADA Nieto Last Filed: 07/01/21 04:45> Time Seen by Provider: 06/30/21 21:05 <Emilia Trivedi PA-C - Last Filed: 07/01/21 04:45> Source: patient <GHADA Nieto Last Filed: 07/01/21 04:45> Mode of arrival: ambulatory <GHADA Nieto Last Filed: 07/01/21 04:45> Limitations: no limitations <GHADA Nieto Last Filed: 07/01/21 04:45> History of Present Illness HPI Narrative: Patient is a 21-year-old male who presents ED with bilateral testicular pain x1 month, worse in the right testicle. Patient reports having intermittent pain over the last month and states the pain lasts anywhere 30 minutes to 2 hours at a time. He was seen in the ED for this on 06/20 and given ibuprofen with recommendation to follow-up with his PCP for further evaluation and possibly Urology referral. Patient has been taking ibuprofen without relief of the pain. He states the pain will occasionally radiate down his bilateral lower extremities. He reports increased pain over the last couple days, and an area of swelling in his right superior lateral testicle, which prompted him to return to the ED. Patient denies any fevers, chills, abdominal pain, nausea, vomiting, diarrhea. Patient is sexually active and last had intercourse 3 days ago. Patient was empirically treated for STDs in the beginning of June and reports his testing returned negative at that time. He denies any current dysuria, hematuria, genital lesions, or penile discharge. <GHADA Nieto Last Filed: 07/01/21 04:45> Related Data Allergies/Adverse reactions: Allergies Allergy/AdvReac Type Severity Reaction Status Date / Time No Known Allergies Allergy Verified 06/20/21 05:36 <GHADA Nieto Last Filed: 07/01/21 04:45> Review of Systems Review of Systems: CONSTITUTIONAL: Denies fever, chills, or sweats. CARDIOVASCULAR: Denies chest pain. RESPIRATORY: Denies cough or dyspnea. GASTROINTESTINAL: Denies abdominal pain, nausea, vomiting, or diarrhea. GENITOURINARY: Reports testicular pain and swelling. Denies dysuria, hematuria, penile discharge, genital lesions. SKIN: Denies rash or itching. MUSCULOSKELETAL: Denies back pain, joint pain, or myalgia. NEUROLOGIC: Denies headache, numbness, or weakness. <Emilia Trivedi PA-C - Last Filed: 07/01/21 04:45> All systems reviewed & are unremarkable except as noted in HPI and below <Emilia Trivedi PA-C - Last Filed: 07/01/21 04:45> PMFSH Past Medical History Medical History: Medical History Asthma <Emilia Trivedi PA-C - Last Filed: 07/01/21 04:45> Surgical History Surgical History: Surgical History No significant past surgical history <Emilia Trivedi PA-C - Last Filed: 07/01/21 04:45> Family History Family History: Family History Father Alive and well Mother Alive and well <Emilia Trivedi PA-C - Last Filed: 07/01/21 04:45> Social History Social History: Social History Smoking status: Never smoker Additional smoking assessment comments: Attmepted to smoke but it gives him anxiety Alcohol intake: current Substance use: never <Emilia Trivedi PA-C - Last Filed: 07/01/21 04:45> Exam Narrative: GENERAL: Well appearing, well-nourished, non-toxic, in no acute distress. HEAD: Normocephalic, atraumatic. NECK: Supple. No adenopathy, no masses. RESPIRATORY: Airway patent, respirations nonlabored. Clear to auscultation bilaterally, no rales, rhonchi, wheezing. CARDIOVASCULAR: Regular rate and rhythm without murmurs, rubs, or gallops. ABDOMIN
[2021-06-30 21:58] LABS: Basophils Percent Auto 0.5 % (0.2-1.2); Eosinophils Absolute Auto 0.2 K/mm3 (0-0.3); Eosinophils Percent Auto 2.4 % (0-4.4); Hematocrit 43.6 % (42.0-52.0); Hemoglobin 15.7 g/dL (14.0-18.0); Immature Granulocyte Absolute 0.02 K/mm3 (0.00-0.031); Immature Granulocyte Percent A 0.2 % (0-0.5); Lymphocytes Absolute Auto 1.94 K/mm3 (0.9-3.2); Lymphocytes Percent Auto 23.3 % (18.3-44.2); Mean Corpuscular Hemoglobin 32.8 pg (26-34); Mean Corpuscular Volume 91.2 fl (80-100); Mean Platelet Volume 10.5 fl (7.4-10.4); Monocytes Absolute Auto 0.6 K/mm3 (0.1-0.6); Monocytes Percent Auto 7.6 % (2.6-8.5); Neutrophils Absolute Auto 5.5 K/mm3 (1.3-6.7); Platelet Count Result 256 k/mm3 (150-375); Red Blood Count 4.78 M/mm3 (4.6-6.20); Red Cell Distribution Width 11.9 % (11.5-14.5); White Blood Count 8.3 K/mm3 (4.5-10.0)
[2021-06-30 22:07] LABS: Alanine Aminotransferase 25 U/L (4-50); Albumin Level 4.3 g/dL (3.5-5.1); Alkaline Phosphatase 137 U/L (38-126); Anion Gap 10 mmol/L (8-16); Aspartate Amino Transferase 30 U/L (17-59); Bilirubin,Total 0.9 mg/dL (0.2-1.3); Blood Urea Nitrogen 13 mg/dL (9-20); Calcium 8.6 mg/dL (8.4-10.2); Carbon Dioxide 23 mmol/L (22-30); Chloride 105 mmol/L (98-107); Estimated CRCL calculation 113 ml/min; Estimated Glomerular Filt Rate > 60; Glucose 108 mg/dL (65-110); Potassium 3.5 mmol/L (3.4-5.0); Sodium 138 mmol/L (137-145)
--- NOTE | 2021-06-30 22:39 | PC.NURSE ---
pt to us via w/c
--- NOTE | 2021-06-30 22:46 | PC.NURSE ---
pt returned from [facility].
[2021-07-01] MEDS: cefTRIAXone 1 GM VIAL 0.5 GM IM (00:16)
[2021-07-01] MEDS: LIDOCAINE HCL 1% LOCAL INJ 20 ML VIAL (00:19)
[2021-07-01 00:20] VITALS: BP 133/88; PULSE 78; RESP 16; O2SAT 98
== END 2021-07-01 00:22 | disposition home or self-care (01) ==
PROVIDERS: Physician Assistant; Emergency Provider Emergency Medicine
DX: N45.1 Epididymitis (principal); J45.909 Unspecified asthma, uncomplicated
CPT/HCPCS: 36415; 76870; 80053; 81003; 85025; 87491; 87591; 93976; 96372; 99284; J0696

== ENCOUNTER 2021-08-13 23:51 | Emergency (ER) | payer OTHER, SELFPAY ==
--- NOTE | ~2021-08-13 | CT_ITS ---
EXAMINATION: CT abdomen pelvis w con INDICATION: Abdominal pain TECHNIQUE: Computed tomographic images of the abdomen and pelvis were obtained after the administrati on of 100 cc of Omnipaque 350 intravenous contrast. The dose-length product (DLP) was 485.77 mGy-cm. Automated exposure control and iterative reconstruction technique were employed. COMPARISON: None available FINDINGS: The lung bases are clear. The heart size is normal. The liver, spleen, pancreas, gallbladde r, and adrenal glands are normal. The kidneys are unremarkable. No pathologically enlarged abdominal or pelvic lymph nodes are identified. There is no free intraperitoneal gas or evidence of bowel obstr uction. The appendix is normal. IMPRESSION: 1. No CT correlate for the patient's symptoms. Reviewed, dictated and finalized at location A.
[2021-08-14 00:05] VITALS: BP 116/76; PULSE 79; RESP 18; TEMP 36.2; O2SAT 100
[2021-08-14 00:09] LABS: Basophils Absolute Auto 0.1 K/mm3 (0.0-0.1); Basophils Percent Auto 0.4 % (0.2-1.2); Eosinophils Absolute Auto 0.2 K/mm3 (0-0.3); Eosinophils Percent Auto 1.3 % (0-4.4); Hematocrit 48.1 % (42.0-52.0); Hemoglobin 16.9 g/dL (14.0-18.0); Immature Granulocyte Absolute 0.04 K/mm3 (0.00-0.031); Immature Granulocyte Percent A 0.3 % (0-0.5); Lymphocytes Percent Auto 23.2 % (18.3-44.2); Mean Corpuscular HGB Conc 35.1 g/dl (32-36); Mean Corpuscular Hemoglobin 31.9 pg (26-34); Mean Corpuscular Volume 90.8 fl (80-100); Mean Platelet Volume 10.6 fl (7.4-10.4); Monocytes Absolute Auto 0.8 K/mm3 (0.1-0.6); Monocytes Percent Auto 6.5 % (2.6-8.5); Neutrophils Percent Auto 68.3 % (45.5-73.1); Platelet Count Result 327 k/mm3 (150-375); Red Cell Distribution Width 11.9 % (11.5-14.5); White Blood Count 11.7 K/mm3 (4.5-10.0)
--- NOTE | 2021-08-14 00:12 | ED.ABDPAIN ---
HPI - Abdominal Pain General Chief Complaint: Abdominal Pain <GHADA Nieto Last Filed: 08/14/21 14:48> Stated Complaint: Low Abdominal Pressure <GHADA Nieto Last Filed: 08/14/21 14:48> Time Seen by Provider: 08/14/21 00:11 <Emilia Trivedi PA-C - Last Filed: 08/14/21 14:48> Source: patient <GHADA Nieto Last Filed: 08/14/21 14:48> Mode of arrival: ambulatory <GHADA Nieto Last Filed: 08/14/21 14:48> Limitations: no limitations <GHADA Nieto Last Filed: 08/14/21 14:48> History of Present Illness HPI narrative: Patient is a 21-year-old male who presents to the ED with report of lower abdominal pressure. Patient reports having pressure like pain in his lower abdomen /upper groin for the past 4 days. Patient has been seen in the ED previously for persistent vague testicular pain. He was given urology and primary care follow-up on previous visits but has not followed up with these providers. Denies any testicular pain at this time. He reports having this pressure in his lower abdomen for the past 4 days, but denies significant pain. He has not tried anything for his symptoms. Denies any shortness of breath, chest pain, nausea, vomiting, diarrhea, constipation, rectal bleeding, dysuria, hematuria. No further concern for STIs. No penile discharge, penile lesions. <GHADA Nieto Last Filed: 08/14/21 14:48> Related Data Allergies/Adverse Reactions: Allergies Allergy/AdvReac Type Severity Reaction Status Date / Time No Known Allergies Allergy Verified 06/20/21 05:36 <Emilia Trivedi PA-C - Last Filed: 08/14/21 14:48> Review of Systems Review of Systems: CONSTITUTIONAL: Denies fever, chills. ENT: Denies rhinorrhea, congestion. CARDIOVASCULAR: Denies chest pain. RESPIRATORY: Denies dyspnea. GASTROINTESTINAL: Reports lower abdominal/upper groin pressure. Denies abdominal pain, nausea, vomiting, constipation, rectal bleeding, or diarrhea. GENITOURINARY: Denies testicular pain, penile discharge, penile lesions, dysuria or hematuria. MUSCULOSKELETAL: Denies back pain. NEUROLOGIC: Denies headache, numbness, or weakness. <Emilia Trivedi PA-C - Last Filed: 08/14/21 14:48> All systems reviewed & are unremarkable except as noted in HPI and below <Emilia Trivedi PA-C - Last Filed: 08/14/21 14:48> PMFSH Past Medical History Medical History: Medical History Asthma <Emilia Trivedi PA-C - Last Filed: 08/14/21 14:48> Surgical History Surgical History: Surgical History No significant past surgical history <Emilia Trivedi PA-C - Last Filed: 08/14/21 14:48> Family History Family History: Family History Father Alive and well Mother Alive and well <Emilia Trivedi PA-C - Last Filed: 08/14/21 14:48> Social History Social History: Social History Smoking status: Never smoker Additional smoking assessment comments: Attmepted to smoke but it gives him anxiety Alcohol intake: current Substance use: never <Emilia Trivedi PA-C - Last Filed: 08/14/21 14:48> Exam Narrative: GENERAL: Well appearing, well-nourished, non-toxic, in no acute distress. HEAD: Normocephalic, atraumatic. NECK: Supple. No adenopathy, no masses. RESPIRATORY: Airway patent, respirations nonlabored. Clear to auscultation bilaterally, no rales, rhonchi, wheezing. CARDIOVASCULAR: Regular rate and rhythm without murmurs, rubs, or gallops. Radial pulses 2+ and equal bilaterally. ABDOMINAL: Soft, mild tenderness to palpation of RUQ, RLQ, and LLQ, worst in LLQ, no rebound/guarding, nondistended. Normoactive BS. MUSCULOSKELETAL: Moves all extremities. Strength/ROM intact without gross deformities or TTP. SKIN: Warm, dry, no
[2021-08-14 00:15] LABS: Mucus Urine Rare /lpf; RBC Urine 0-2 /hpf (0-2)
[2021-08-14 00:22] LABS: Add Urine Microscopic? YES; Appearance Urine Clear (Clear); Bilirubin Urine Negative (Negative); Blood Urine Negative (Negative); Color Urine Yellow (Yellow); Glucose Urine UA Negative (Negative); Ketones Urine Trace mg/dL (Negative); Leukocyte Esterase Ur Negative LEU/UL (Negative); Nitrate Urine Negative (Negative); Protein Urine Negative (Negative)
[2021-08-14 00:26] LABS: Alanine Aminotransferase 34 U/L (4-50); Albumin Level 5.1 g/dL (3.5-5.1); Alkaline Phosphatase 152 U/L (38-126); Anion Gap 11 mmol/L (8-16); Aspartate Amino Transferase 39 U/L (17-59); Bilirubin,Total 1.7 mg/dL (0.2-1.3); Blood Urea Nitrogen 11 mg/dL (9-20); Calcium 9.2 mg/dL (8.4-10.2); Carbon Dioxide 27 mmol/L (22-30); Chloride 102 mmol/L (98-107); Estimated CRCL calculation 101 ml/min; Estimated Glomerular Filt Rate > 60; Glucose 100 mg/dL (65-110); Lipase 89 U/L (23-300); Potassium 3.7 mmol/L (3.4-5.0); Sodium 140 mmol/L (137-145)
[2021-08-14] MEDS: SODIUM CHLORIDE 0.9% IV 1,000 ML 999 ML IV CONT (00:57)
[2021-08-14 02:05] VITALS: BP 146/89; PULSE 52; RESP 18; O2SAT 100
[2021-08-14 02:59] VITALS: BP 135/72; PULSE 65; RESP 18; O2SAT 100
[2021-08-14 06:23] LABS: D Dimer < 0.22 ug/mL (<0.48)
== END 2021-08-14 04:27 | disposition home or self-care (01) ==
LOC: ANHED 08-14 00:24
PROVIDERS: Physician Assistant; Emergency Provider Emergency Medicine
DX: R10.30 Lower abdominal pain, unspecified (principal); J45.909 Unspecified asthma, uncomplicated
CPT/HCPCS: 36415; 74177; 80053; 81001; 83690; 85025; 85380; 96361; 96374; 99284; J0131; J7030; Q9967

== ENCOUNTER 2021-10-25 18:05 | Emergency (ER) | payer OTHER, SELFPAY ==
[2021-10-25 18:07] VITALS: BP 156/77; PULSE 85; RESP 18; TEMP 36.6; O2SAT 98
--- NOTE | 2021-10-25 18:21 | ED.RECABL ---
HPI - Recheck/Abnormal Lab/Rx General Chief Complaint: Recheck/Abnormal Lab/Rx Stated Complaint: std testing History of Present Illness HPI narrative: 21-year-old male presents the emergency room for evaluation of a stinging sensation on the tip of his penis. Reports sensation has been present for a week. Patient states that he has been having lots of unprotected intercourse with multiple women. Patient states that he has had a history of chlamydia in the past, and says that this feels similar. Related Data Allergies Allergy/AdvReac Type Severity Reaction Status Date / Time No Known Allergies Allergy Verified 06/20/21 05:36 Review of Systems Review of Systems: CONSTITUTIONAL: Denies fever, chills, or sweats. EYES: Denies visual changes, redness, or discharge. ENT: Denies rhinorrhea, congestion, sore throat, or otalgia. CARDIOVASCULAR: Denies chest pain, palpitations, or edema. RESPIRATORY: Denies cough or dyspnea. GASTROINTESTINAL: Denies abdominal pain, nausea, vomiting, or diarrhea. GENITOURINARY: Reports dysuria SKIN: Denies rash or itching. MUSCULOSKELETAL: Denies back pain, joint pain, or myalgia. NEUROLOGIC: Denies headache, numbness, dizziness, or weakness. PSYCHIATRIC: Denies anxiety or depression. PMFSH Past Medical History Medical History Asthma Surgical History Surgical History No significant past surgical history Family History Family History Father Alive and well Mother Alive and well Social History Social History Smoking status: Never smoker Additional smoking assessment comments: Attmepted to smoke but it gives him anxiety Alcohol intake: current Substance use: never Exam Narrative: GENERAL: Well-appearing, well-nourished, no physical limitations, and in no acute distress. HEAD: Normocephalic, atraumatic. EYES: Conjunctivae normal, PERRLA and EOMI. CHEST: Clear to auscultation. No respiratory distress. No wheezes rales or rhonchi. No tenderness. HEART: Regular rate and rhythm. No murmur heard. Normal peripheral pulses. ABDOMEN: Soft, nontender, nondistended, normal active bowel sounds. : deferred SKIN: Warm, dry, no rash. No noted wounds NEURO: No focal deficits. Alert and oriented x3. MAEW. CN's II-XI intact bilaterally, normal gait PSYCH: Cooperative. Normal mood and affect. Course Vital Signs Vital signs: Vital Signs Temperature 36.6 C 10/25/21 18:07 Pulse Rate 85 10/25/21 18:07 Respiratory Rate 18 10/25/21 18:07 Blood Pressure 156/77 H 10/25/21 18:07 Pulse Oximetry 98 10/25/21 18:07 Temperature 36.6 C 10/25/21 18:07 Pulse Rate 85 10/25/21 18:07 Respiratory Rate 18 10/25/21 18:07 Blood Pressure 156/77 H 10/25/21 18:07 Pulse Oximetry 98 10/25/21 18:07 MDM - Recheck/Abnormal Lab/Rx Lab Data Labs: Lab Results 10/25/21 10/25/21 Range/Units 18:45 18:45 Urine Color Yellow (Yellow) Urine Appearance Cloudy H (Clear) Urine pH 8.5 (5.0-9.0) Ur Specific [place] 1.020 (1.001-1.035) Urine Protein Negative (Negative) mg/dL Urine Glucose (UA) Negative (Negative) mg/dL Urine Ketones Negative (Negative) mg/dL Ur Blood (Man) Negative (Negative) Urine Nitrate Negative (Negative) Urine Bilirubin Negative (Negative) Urine Urobilinogen 1.0 (<2.0) mg/dL Leukocyte Esterase Rfl Negative (Negative) MIRIAN/UL Urine RBC 3-5 H (0-2) /hpf Urine WBC 0-3 /hpf Amorphous Sediment Moderate H (None) Urine Bacteria Trace /hpf C.trachomatis RNA (TMA) Pending N.gonorrhoeae RNA (TMA) Pending Discharge Plan Discharge Clinical Impression: Exposure to sexually transmitted disease (STD) Patient Disposition: Home, Self-Care Condition: Stable In
[2021-10-25] MEDS: metroNIDAZOLE 250 MG TABLET 2000 MG PO (18:41)
[2021-10-25] MEDS: cefTRIAXone 1 GM VIAL 0.5 GM IM (18:42)
[2021-10-25 18:55] LABS: Appearance Urine Cloudy (Clear); Bilirubin Urine Negative (Negative); Blood Urine Negative (Negative); Color Urine Yellow (Yellow); Glucose Urine UA Negative (Negative); Ketones Urine Negative (Negative); Leukocyte Esterase Ur Negative LEU/UL (Negative); Nitrate Urine Negative (Negative); Protein Urine Negative (Negative); pH Urine 8.5 (5.0-9.0)
[2021-10-25 19:00] LABS: Add Urine Microscopic? YES; Amorphous Sediment Urine Moderate; Bacteria Urine Trace /hpf; WBC Urine 0-3 /hpf
--- NOTE | 2021-10-25 19:31 | PC.NURSE ---
Pt seen by ASSEMBLER TUBING Keen in ED Triage 2. C/O penile itching. Denies discharge or sores/lesions. Urine sent to lab and pt given abx for possible STD exposure.
== END 2021-10-25 18:55 | disposition home or self-care (01) ==
LOC: ANHED 19:12
PROVIDERS: Emergency Provider Nurse Practitioner Family
DX: Z20.2 Contact with and (suspected) exposure to infections with a predominantly sexual mode of transmission (principal); J45.909 Unspecified asthma, uncomplicated
CPT/HCPCS: 81001; 87491; 87591; 87661; 96372; 99283; A9270; J0696

== ENCOUNTER 2021-10-29 21:21 | Emergency (ER) | payer OTHER, SELFPAY ==
[2021-10-29] VITALS (10 sets, daily range): BP systolic 115–125; BP diastolic 73–93; PULSE 72–79; RESP 16–18; TEMP 36.2; O2SAT 98–100
--- NOTE | ~2021-10-29 | CT_ITS ---
EXAMINATION: CT abdomen pelvis wo con DATE: 10/29/2021 22:08 INDICATION: Lower abdominal pain TECHNIQUE: Computed tomography (CT) of the abdomen and pelvis was performed without intravenous contr ast. The dose-length product (DLP) was 381.78 mGy-cm. Automated exposure control and iterative recons truction technique were employed. COMPARISON: 08/14/2021 FINDINGS: The lung bases are clear. The heart size is normal. The liver, spleen, pancreas, gallbladde r, and adrenal glands are normal. The kidneys are unremarkable. No pathologically enlarged abdominal or pelvic lymph nodes are identified. There is no free intraperitoneal gas or evidence of bowel obstr uction. A moderate volume of colonic stool is present. IMPRESSION: 1. Constipation. Reviewed, dictated and finalized at location F. IMPRESSION: 1. Constipation.
[2021-10-29] MEDS: SODIUM CHLORIDE 0.9% IV 1,000 ML 150 ML IV CONT (22:15)
[2021-10-29 22:23] LABS: Basophils Absolute Auto 0.1 K/mm3 (0.0-0.1); Basophils Percent Auto 0.7 % (0.2-1.2); Eosinophils Absolute Auto 0.3 K/mm3 (0-0.3); Eosinophils Percent Auto 3.6 % (0-4.4); Hematocrit 42.7 % (42.0-52.0); Hemoglobin 15.6 g/dL (14.0-18.0); Immature Granulocyte Absolute 0.02 K/mm3 (0.00-0.031); Immature Granulocyte Percent A 0.3 % (0-0.5); Lymphocytes Absolute Auto 2.25 K/mm3 (0.9-3.2); Lymphocytes Percent Auto 30.2 % (18.3-44.2); Mean Corpuscular HGB Conc 36.5 g/dl (32-36); Mean Corpuscular Hemoglobin 32.7 pg (26-34); Mean Corpuscular Volume 89.5 fl (80-100); Mean Platelet Volume 10.7 fl (7.4-10.4); Monocytes Absolute Auto 0.7 K/mm3 (0.1-0.6); Monocytes Percent Auto 9.1 % (2.6-8.5); Neutrophils Absolute Auto 4.2 K/mm3 (1.3-6.7); Neutrophils Percent Auto 56.1 % (45.5-73.1); Platelet Count Result 248 k/mm3 (150-375); Red Blood Count 4.77 M/mm3 (4.6-6.20); White Blood Count 7.4 K/mm3 (4.5-10.0)
[2021-10-29 22:25] LABS: Appearance Urine Clear (Clear); Bilirubin Urine Negative (Negative); Blood Urine Negative (Negative); Color Urine Yellow (Yellow); Glucose Urine UA Negative (Negative); Ketones Urine Negative (Negative); Leukocyte Esterase Ur Negative LEU/UL (Negative); Nitrate Urine Negative (Negative); Protein Urine Negative (Negative); Urobilinogen Urine 0.2 mg/dL (<2.0)
[2021-10-29 22:35] LABS: Alanine Aminotransferase 24 U/L (6-50); Albumin Level 4.4 g/dL (3.5-5.1); Alkaline Phosphatase 129 U/L (38-126); Anion Gap 9 mmol/L (8-16); Aspartate Amino Transferase 30 U/L (17-59); Bilirubin,Total 1.4 mg/dL (0.2-1.3); Blood Urea Nitrogen 13 mg/dL (9-20); Calcium 8.6 mg/dL (8.4-10.2); Carbon Dioxide 23 mmol/L (22-30); Chloride 105 mmol/L (98-107); Estimated CRCL calculation 112 ml/min; Estimated Glomerular Filt Rate > 60; Glucose 106 mg/dL (65-110); Lipase 69 U/L (23-300); Potassium 3.6 mmol/L (3.4-5.0); Sodium 137 mmol/L (137-145)
--- NOTE | 2021-10-29 22:57 | ED.ABDPAIN ---
HPI - Abdominal Pain General Chief Complaint: Abdominal Pain Stated Complaint: abd pains Time Seen by Provider: 10/29/21 21:45 Source: patient Mode of arrival: ambulatory Limitations: no limitations History of Present Illness HPI narrative: 21-year-old otherwise healthy here with complaints of lower abdominal pain for past 1 week. Patient denies any fever or chills. Has occasional nausea. Denies any diarrhea. MD elicited complaint: abdominal pain Pertinent past history: none Onset (ago): week(s) (1) Pain Consistency: intermittent Location: RLQ, LLQ and suprapubic Severity: moderate Quality: cramping Radiation: none Migration to: no migration Exacerbating factors: nothing Associated symptoms: denies other symptoms Related Data Allergies Allergy/AdvReac Type Severity Reaction Status Date / Time No Known Allergies Allergy Verified 06/20/21 05:36 Review of Systems Review of Systems: All systems reviewed & are unremarkable except as noted in HPI and below Constitutional: Constitutional: Reports no additional constitutional complaints Eyes: Eyes: Reports no additional eye complaints ENT: Reports system reviewed and no additional complaints, except as documented Cardiovascular: Cardiovascular: Reports no additional cardiovascular complaints Respiratory: Respiratory: Reports no additional respiratory complaints Gastrointestinal: Gastrointestinal: Reports as per HPI Genitourinary: Genitourinary: Reports no additional male genitourinary complaints Musculoskeletal: Musculoskeletal: Reports no additional musculoskeletal complaints Neurologic: Reports system reviewed and no additional complaints, except as documented PMFSH Past Medical History Medical History Asthma Surgical History Surgical History No significant past surgical history Family History Family History Father Alive and well Mother Alive and well Social History Social History Smoking status: Never smoker Additional smoking assessment comments: Attmepted to smoke but it gives him anxiety Alcohol intake: current Substance use: never Exam Narrative: GENERAL: Well-appearing, well-nourished, and in no acute distress. HEAD: Normocephalic, atraumatic. EYES: PERRLA and EOMI. ENT: Nares clear, no rhinorrhea or epistaxis. Mucous membranes moist. NECK: Supple. CHEST: Clear to auscultation. No respiratory distress. HEART: Regular rate and rhythm. No murmur heard. Normal peripheral pulses. ABDOMEN: Soft, mild tender in lower abdomen, nondistended, normal active bowel sounds. EXTREMITIES: Normal range of motion. No edema. SKIN: Warm, dry, no rash. NEURO: No focal deficits. Alert and oriented x3. PSYCH: Normal mood and affect. Course Course Emergency Course: Patient comfortably sitting on the stretcher not in any discomfort. Informed him about his lab work, CT findings. Advised him to take laxative. Vital Signs Vital signs: Vital Signs Temperature 36.2 C L 10/29/21 21:27 Pulse Rate 76 10/29/21 21:27 Respiratory Rate 18 10/29/21 21:27 Blood Pressure 115/73 10/29/21 21:27 Pulse Oximetry 98 10/29/21 21:27 Oxygen Delivery Room Air 10/29/21 21:27 Temperature 36.2 C L 10/29/21 21:27 Pulse Rate 76 10/29/21 21:27 Respiratory Rate 18 10/29/21 21:27 Blood Pressure 115/73 10/29/21 21:27 Pulse Oximetry 98 10/29/21 21:27 Oxygen Delivery Room Air 10/29/21 21:27 MDM - Abdominal Pain Lab Data Result diagrams: 10/29/21 22:06 10/29/21 22:06 Labs: Lab Results 10/29/21 10/29/21 10/29/21 Range/Units 22:06 22:06 22:18 WBC 7.4 (4.5-10.0) K/mm3 RBC 4.77 (4.6-6.20) M/mm3 Hgb 15.6 (14.0-18.0) g/dL Hct 42.7 (42.0-52.0) % MCV 89.5 (80-1
[2021-10-29 23:36] LABS: Add Urine Microscopic? NO
[2021-10-29 23:39] LABS: RBC Urine 0-2 /hpf (0-2); WBC Urine 21-30 /hpf
[2021-10-29 23:40] LABS: Bacteria Urine Trace /hpf
[2021-10-29 23:43] LABS: Mucus Urine Rare /lpf
== END 2021-10-29 23:10 | disposition home or self-care (01) ==
PROVIDERS: Emergency Provider Family Medicine
DX: K59.00 Constipation, unspecified (principal); J45.909 Unspecified asthma, uncomplicated
CPT/HCPCS: 36415; 74176; 80053; 81003; 83690; 85025; 87086; 96360; 99284; J7030

== ENCOUNTER 2022-12-23 12:05 | Emergency (ER) | payer OTHER, SELFPAY ==
--- NOTE | 2022-12-23 12:06 | ED.MALEGU ---
HPI - Male Genitourinary General Chief complaint: Urogenital-Male Stated complaint: STD Time Seen by Provider: 12/23/22 12:06 Source: patient Mode of arrival: ambulatory Limitations: no limitations History of Present Illness HPI Narrative: Patient is a 22-year-old male who presents possible exposure to chlamydia. Patient states sexual partners was recently diagnosed with chlamydia. Presents for STD check. History of chlamydia infection. Patient says he has intermittent burning with urination and mild itching but it is not constant. Denies any penile discharge, testicular pain or swelling, fever, chills, nausea, vomiting, diarrhea. States he would like treatment for chlamydia Complaint: possible STD exposure Related Data Allergies Allergy/AdvReac Type Severity Reaction Status Date / Time No Known Allergies Allergy Verified 06/20/21 05:36 Review of Systems Review of Systems: All systems reviewed & are unremarkable except as noted in HPI and below Constitutional: Constitutional: Denies chills, Denies fever(s), Denies headache(s), Denies malaise and Denies weakness Eyes: Eyes: Denies change in vision, Denies eye discharge and Denies irritation ENT: Denies otalgia, Denies headache(s), Denies nasal congestion, Denies nasal discharge, Denies sinus pain and Denies sore throat Cardiovascular: Cardiovascular: Denies chest pain, Denies edema, Denies palpitations and Denies dyspnea Respiratory: Respiratory: Denies cough and Denies dyspnea Gastrointestinal: Gastrointestinal: Denies abdominal pain, Denies diarrhea, Denies nausea and Denies vomiting Genitourinary: Genitourinary: Denies hematuria, Denies genital pain, Reports dysuria, Denies flank pain, Denies painful ejaculations, Denies penile discharge, Denies scrotal swelling, Denies testicular pain, Denies urinary frequency, Denies urinary urgency and Reports other (genital itching) Musculoskeletal: Musculoskeletal: Denies back pain and Denies numbness Integumentary/Breasts: Skin/Breast: Denies pruritus and Denies rash Neurologic: Denies headache(s), Denies numbness and Denies weakness Psychiatric: Psychiatric: Reports no additional psychiatric complaints Endocrine: Endocrine: Denies palpitations PMFSH Past Medical History Medical History Asthma Surgical History Surgical History No significant past surgical history Family History Family History Father Alive and well Mother Alive and well Social History Social History Smoking status: Never smoker Additional smoking assessment comments: Attmepted to smoke but it gives him anxiety Alcohol intake: current Substance use: never Living arrangements: with family Occupation/Education: unemployed Comments At time of signature, agree with nursing past medical, surgical, social and family history. There is no relevant family history pertinent to the presenting complaint. Exam Const: General: cooperative, healthy appearing, comfortable, no acute distress and well nourished Nutritional Appearance: well nourished Orientation/consciousness: patient oriented x3 HENMT: Head: normocephalic and atraumatic Ears: external ears normal Face/Nose/Sinus: Normal external nose present, Normal nares present and normal facial exam Face and sinus: normal facial exam Eyes: General: appearance normal, both eyes and all related structures Pupils: Equal, round and reactive pupils present EOM: EOMs intact bilaterally Neck: Neck: normal visual inspection, full ROM and supple Chest: Chest palpation & inspection: normal inspection of the chest Resp: Effort & Inspection: normal respiratory effort and able to speak in complete sentences Cardio: Rate: regular rate Rhythm: regular rhythm GI: Inspection: normal to
[2022-12-23 12:14] VITALS: BP 113/67; PULSE 83; RESP 15; TEMP 36.8; O2SAT 100
== END 2022-12-23 12:49 | disposition home or self-care (01) ==
PROVIDERS: Emergency Provider Nurse Practitioner Family
DX: Z20.2 Contact with and (suspected) exposure to infections with a predominantly sexual mode of transmission (principal); J45.909 Unspecified asthma, uncomplicated
CPT/HCPCS: 87491; 87591; 87661; 99213; G0463

== ENCOUNTER 2023-09-14 13:36 | Emergency (ER) | payer OTHER, SELFPAY ==
[2023-09-14 13:44] VITALS: BP 154/90; PULSE 80; RESP 16; TEMP 36.7; O2SAT 100
--- NOTE | 2023-09-14 14:10 | ED.DENTAL ---
HPI - Dental/Oral General Chief complaint: Dental/Oral Stated complaint: right side toothache Time Seen by Provider: 09/14/23 14:04 Source: patient and RN notes reviewed Mode of arrival: ambulatory Limitations: no limitations History of Present Illness HPI Narrative: Patient presents today complaining of right upper and lower tooth pain x5 days. States that both teeth have fallen out in pieces and there are pieces remaining. Currently rates his pain 8/10 and has been taking ibuprofen without relief. Denies facial swelling, fever, shortness of breath, difficulty swallowing. States he has an appointment with a dentist in 1 week. Related Data Allergies Allergy/AdvReac Type Severity Reaction Status Date / Time No Known Allergies Allergy Verified 06/20/21 05:36 Review of Systems Review of Systems: CONSTITUTIONAL: Denies body aches, fever, chills, or sweats. EYES: Denies visual changes, redness, or discharge. ENT: Denies rhinorrhea, congestion, sore throat, or otalgia.+ tooth pain CARDIOVASCULAR: Denies chest pain, palpitations, or edema. RESPIRATORY: Denies cough or dyspnea. GASTROINTESTINAL: Denies abdominal pain, nausea, vomiting, or diarrhea. GENITOURINARY: Denies dysuria or hematuria. SKIN: Denies rash, itching, or wounds. MUSCULOSKELETAL: Denies back pain, joint pain, or myalgia. NEUROLOGIC: Denies headache, numbness, tingling, or weakness. PSYCH: Denies depression or anxiety. [facility] Past Medical History Medical History Asthma Surgical History Surgical History No significant past surgical history Family History Family History Father Alive and well Mother Alive and well Social History Social History Smoking status: Never smoker Additional smoking assessment comments: Attmepted to smoke but it gives him anxiety Alcohol intake: current Substance use: never Living arrangements: with family Occupation/Education: unemployed Comments At time of signature, I have reviewed and agree with nursing past medical, surgical, social and family history unless otherwise noted. Please see nursing chart for further information. There is no relevant family history pertinent to the presenting complaint Exam Narrative: GENERAL: Well-appearing, well-nourished, and in no acute distress. HEAD: Normocephalic, atraumatic. EYES: EOMI. No redness or drainage. Conjunctivae normal. ENT: Mucous membranes pink and moist. Tooth 3 is absent, along with 30. Difficult to tell if they are still pieces in the gumline. No facial swelling noted. No obvious periapical abscess noted. No trismus. NECK: Normal AROM. CHEST: No respiratory distress. EXTREMITIES: Normal range of motion. No edema. SKIN: Warm, dry, no rash. Capillary refill normal. Normal skin turgor. NEURO: No focal deficits. Alert and oriented x3. Gait steady. PSYCH: Normal affect. No signs of depression or anxiety. Course Course Level of Care: Express Care Visit Vital Signs Vital signs: Vital Signs Temperature 98.1 F 09/14/23 13:44 Pulse Rate 80 09/14/23 13:44 Respiratory Rate 16 09/14/23 13:44 Blood Pressure 154/90 H 09/14/23 13:44 Pulse Oximetry 100 09/14/23 13:44 Oxygen Delivery Room Air 09/14/23 13:44 Temperature 98.1 F 09/14/23 13:44 Pulse Rate 80 09/14/23 13:44 Respiratory Rate 16 09/14/23 13:44 Blood Pressure 154/90 H 09/14/23 13:44 Pulse Oximetry 100 09/14/23 13:44 Oxygen Delivery Room Air 09/14/23 13:44 Reviewed MDM - Dental/Oral MDM Narrative Medical decision making narrative: Patient will be prescribed a course of amoxicillin for possible infection. Anticipatory guidance given. Differential Diagnosis Differential diagnosis: Likely gingival ab
== END 2023-09-14 14:25 | disposition home or self-care (01) ==
PROVIDERS: Emergency Provider Nurse Practitioner
DX: K02.9 Dental caries, unspecified (principal); J45.909 Unspecified asthma, uncomplicated
CPT/HCPCS: 99213; G0463

== ENCOUNTER 2023-12-05 22:10 | Emergency (ER) | payer OTHER, SELFPAY ==
[2023-12-05 22:18] VITALS: BP 123/78; PULSE 78; RESP 18; TEMP 36.4; O2SAT 99
--- NOTE | 2023-12-06 01:17 | PC.NURSE ---
1st call no answer
--- NOTE | 2023-12-06 01:30 | PC.NURSE ---
second call no answer
== END 2023-12-06 01:15 | disposition left against medical advice (07) ==
LOC: ANHED 12-06 01:52
DX: R10.84 Generalized abdominal pain (principal)
CPT/HCPCS: 99199

== ENCOUNTER 2023-12-06 16:31 | Emergency (ER) | payer OTHER, SELFPAY ==
--- NOTE | ~2023-12-06 | CT_ITS ---
EXAMINATION: CT abdomen pelvis w con DATE: 12/06/2023 22:00 INDICATION: ABDOMEN PAIN TECHNIQUE: Computed tomography (CT) of the abdomen and pelvis was performed with 100 mL Omnipaque-350 intravenous contrast. Automated exposure control and iterative reconstruction technique were employe d. The dose-length product was 426.76 mGy-cm. COMPARISON: None. FINDINGS: Lower thorax: Unremarkable Liver: Subcentimeter right lobe hypodensity, likely cyst or hemangioma. Biliary/Gallbladder: Gallbladder is normal. No bile duct dilation. Pancreas: No mass or duct dilation. Spleen: Normal. Adrenals:No mass. Kidneys: No suspicious mass, obstructing stone, or hydronephrosis. GI tract: Mild distal esophageal and gastric wall edema. No small or large bowel dilation. Normal franco endix. Mesentery/Peritoneum: No ascites, mass, or free air. Retroperitoneum: No mass. Pelvis: Pelvic organs are within normal limits. Soft Tissues: Soft tissues and body wall unremarkable. Bones: No acute osseous finding. IMPRESSION: Mild esophagitis/gastritis. Otherwise, no acute abdominopelvic process detected. Reviewed, dictated and finalized at location K.
[2023-12-06 16:36] VITALS: BP 131/76; PULSE 85; RESP 16; TEMP 36.6; O2SAT 99
[2023-12-06 17:07] LABS: Basophils Absolute Auto 0.1 K/mm3 (0.0-0.1); Basophils Percent Auto 0.5 % (0.2-1.2); Eosinophils Percent Auto 0.3 % (0-4.4); Hemoglobin 17.1 g/dL (14.0-18.0); Immature Granulocyte Absolute 0.07 K/mm3 (0.00-0.031); Immature Granulocyte Percent A 0.6 % (0-0.5); Lymphocytes Absolute Auto 2.03 K/mm3 (0.9-3.2); Mean Corpuscular HGB Conc 37.2 g/dl (32-36); Mean Corpuscular Hemoglobin 33.1 pg (26-34); Mean Platelet Volume 10.4 fl (7.4-10.4); Monocytes Absolute Auto 0.7 K/mm3 (0.1-0.6); Monocytes Percent Auto 5.8 % (2.6-8.5); Neutrophils Absolute Auto 9.1 K/mm3 (1.3-6.7); Neutrophils Percent Auto 75.8 % (45.5-73.1); Platelet Count Result 298 k/mm3 (150-375); Red Blood Count 5.17 M/mm3 (4.6-6.20); Red Cell Distribution Width 11.8 % (11.5-14.5)
[2023-12-06 17:08] LABS: Add Urine Microscopic? NO; Appearance Urine Clear (Clear); Bilirubin Urine Negative (Negative); Blood Urine Negative (Negative); Color Urine Yellow (Yellow); Glucose Urine UA Negative (Negative); Ketones Urine Trace mg/dL (Negative); Leukocyte Esterase Ur Negative LEU/UL (Negative); Nitrate Urine Negative (Negative); Protein Urine Negative (Negative); Specific Grav Ur 1.019 (1.001-1.035); pH Urine 6.5 (5.0-9.0)
[2023-12-06 17:26] LABS: Alanine Aminotransferase 38 U/L (6-50); Albumin Level 4.7 g/dL (3.5-5.1); Alkaline Phosphatase 142 U/L (38-126); Anion Gap 10 mmol/L (4-12); Aspartate Amino Transferase 34 U/L (17-59); Bilirubin,Total 1.7 mg/dL (0.2-1.3); Blood Urea Nitrogen 9 mg/dL (9-20); Calcium 9.3 mg/dL (8.4-10.2); Carbon Dioxide 25 mmol/L (22-30); Chloride 102 mmol/L (98-107); Estimated CRCL calculation 100 ml/min; Estimated Glomerular Filt Rate > 60; Glucose 111 mg/dL (65-110); Lipase 76 U/L (23-300); Potassium 3.8 mmol/L (3.4-5.0); Sodium 137 mmol/L (137-145)
--- NOTE | 2023-12-06 20:59 | ED.GENADULT ---
HPI - General Adult General Chief complaint: Abdominal Pain Stated complaint: abd pain Time Seen by Provider: 12/06/23 20:46 History of Present Illness HPI narrative: Patient is a 23-year-old gentleman who presents emergency department with chief complaint of abdominal pain. Patient reports that he has prior history of alcohol abuse and reports that he decided stop drinking about 3 days ago the patient states that he has been having pain throughout his abdomen reports that he has been nauseated Related Data Allergies Allergy/AdvReac Type Severity Reaction Status Date / Time No Known Allergies Allergy Verified 12/06/23 21:05 Review of Systems Review of Systems: A 10 system review of systems was completed on the patient and is negative except for what is stated in the HPI. Nursing and ancillary documentation was reviewed. PMFSH Past Medical History Medical History Asthma Surgical History Surgical History No significant past surgical history Family History Family History Father Alive and well Mother Alive and well Social History Social History Smoking status: Never smoker Additional smoking assessment comments: Attmepted to smoke but it gives him anxiety Alcohol intake: current Substance use: never Living arrangements: with family Occupation/Education: unemployed Exam Narrative: GENERAL: Well-appearing, well-nourished, and in no acute distress. HEAD: Normocephalic, atraumatic. EYES: PERRLA and EOMI. ENT: Nares clear, no rhinorrhea or epistaxis. Mucous membranes moist. NECK: Supple. CHEST: Clear to auscultation. No respiratory distress. HEART: Regular rate and rhythm. No murmur heard. Normal peripheral pulses. ABDOMEN: Soft, diffuse mild tenderness, nondistended, normal active bowel sounds. EXTREMITIES: Normal range of motion. No edema. SKIN: Warm, dry, no rash. NEURO: No focal deficits. Alert and oriented x3. PSYCH: Normal mood and affect. Course Vital Signs Vital signs: Vital Signs Temperature 36.6 C 12/06/23 16:36 Pulse Rate 85 12/06/23 16:36 Respiratory Rate 16 12/06/23 16:36 Blood Pressure 131/76 12/06/23 16:36 Pulse Oximetry 99 12/06/23 16:36 Oxygen Delivery Room Air 12/06/23 16:36 Temperature 37.0 C 12/06/23 21:02 Pulse Rate 77 12/06/23 21:02 Respiratory Rate 15 12/06/23 21:02 Blood Pressure 155/66 H 12/06/23 21:02 Pulse Oximetry 100 12/06/23 21:02 Oxygen Delivery Room Air 12/06/23 21:02 Medical Decision Making MDM Narrative Medical decision making narrative: Differential diagnosis includes intra-abdominal infection, gastritis, cholecystitis, appendicitis Laboratory studies were obtained on the patient showed a CBC with white count 12.0 electrolytes were within normal limits bilirubin was slightly elevated 1.7 AST ALT were normal alk-phos is 142 lipase was normal urinalysis showed trace ketones CT scan of the abdomen pelvis showed Mild esophagitis/gastritis. Otherwise, no acute abdominopelvic process detected. Vital Signs Vital Signs: Vital Signs Temperature 36.6 C 12/06/23 16:36 Pulse Rate 85 12/06/23 16:36 Respiratory Rate 16 12/06/23 16:36 Blood Pressure 131/76 12/06/23 16:36 Pulse Oximetry 99 12/06/23 16:36 Oxygen Delivery Room Air 12/06/23 16:36 Temperature 37.0 C 12/06/23 21:02 Pulse Rate 77 12/06/23 21:02 Respiratory Rate 15 12/06/23 21:02 Blood Pressure 155/66 H 12/06/23 21:02 Pulse Oximetry 100 12/06/23 21:02 Oxygen Delivery Room Air 12/06/23 21:02 Lab Data 12/06/23 16:58 12/06/23 16:58 Labs: Lab Results 12/06/23 Range/Units 16:58 WBC 12.0 H (4.5-10.0) K
[2023-12-06 21:02] VITALS: BP 155/66; PULSE 77; RESP 15; TEMP 37; O2SAT 100
[2023-12-06 22:40] VITALS: BP 138/72; PULSE 71; RESP 14; TEMP 36.9; O2SAT 99
== END 2023-12-06 22:42 | disposition home or self-care (01) ==
PROVIDERS: Emergency Medicine; Emergency Provider Emergency Medicine
DX: K29.70 Gastritis, unspecified, without bleeding (principal)
CPT/HCPCS: 36415; 74177; 80053; 81003; 83690; 85025; 99284; Q9967

== ENCOUNTER 2024-07-15 22:27 | Emergency (ER) | payer SELFPAY ==
[2024-07-15 22:28] VITALS: BP 129/71; PULSE 101; RESP 18; TEMP 36.6; O2SAT 99
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
--- OUTSIDE RECORDS SUMMARY | 2024-07-15 22:29 | XMS_ITS | Referral Summary ---
Author Organization [facility] Address [address] [place] [address] Care Team Providers Care Uptwist Spinner Name Role Phone Unavailable Primary Care Provider Unavailabl e Source Comments [facility],non-owned Affiliates and Associated Physician Practices is amultiple site organization consisting of ambulatory clinics and hospital sitesin [place], [place] and [place]. This disclosure is being madepursuant to the Care Everywhere program and may not contain all information available regarding this patient. Last updated 18.[employer] [facility] Allergies No known active allergies Active Problems Problem Noted Date Diagnosed Date K2 inhalation 02/09/2011 Overview (02/09/2011): Pt reportedly took 2 hits from a K2 joint evening prior to admission. He experienced dizziness, excessive laughter, blurred vision, anxiety, tachycardia and emesis. Pt's ingetsing K2 like substances are in danger of hyperthermia, hypertension, rhabdomyolysis and renal dysfunction as well as prolonged symptoms of trembling, jitteriness, panic and depression. Plan: -repeat CK and BMP today - SW consult -monitor temp, BP and HR Heart murmur 02/09/2011 Overview (02/09/2011): Pt admitted for monitoring s/p K2 inhalation. On exam, 2/6 systolic murmur was appreciated over LUSB and LLSB. No h/o syncope, exercise intolerance, cyanosis, chest pain, or swelling. Likely benign flow murmur. Recommend f/u with PCP for further eval. Immunizations Name Administration Dates Next Due INFLUENZA VACCINE 02/09/2011 Social History Tobacco Use Types Packs/Day Years [...] (92 lb 9.5 oz) 02/09/2011 5:45 AM CDT Height 157 cm (5' 1.81 ) 02/09/2011 5:45 AM CDT Body Mass Index 17.04 02/09/2011 5:45 AM CDT Plan of Treatment Not on file
--- OUTSIDE RECORDS SUMMARY | 2024-07-15 22:29 | XMS_ITS | Clinical Summary ---
Author Organization [facility] Address [address] [place] [address] Care Team Providers Care Room Service Food Server Name Role Phone Unavailable Primary Care Provider Unavailabl e Source Comments [facility],non-owned Affiliates and Associated Physician Practices is amultiple site organization consisting of ambulatory clinics and hospital sitesin [place], [place], [place] and [place]. This disclosure is being madepursuant to the Care Everywhere program and may not contain all information available regarding this patient. Last updated 18.[employer] [facility] Allergies No known active allergies Active Problems [...] Administration Dates Next Due INFLUENZA VACCINE 02/09/2011 Family History Medical History Relation Name Comments Cancer Mother Relation Name Status Comments Mother Social History Tobacco Use Types Packs/Day Years [...] 02/09/2011 5:45 AM CDT Plan of Treatment Health Maintenance Due Date Last Done Comments HIV SCREENING 2013 HPV VACCINE (1 - Male 3-dose series) 2013 HEPATITIS C SCREENING 08/09/2016 DTAP/TDAP/TD VACCINES (1 - Tdap) 2017 HEPATITIS B VACCINE (1 of 3 - 19+ 3-dose series) 2017 COVID-19 VACCINE ( - 2023-2 5 season) 2024 INFLUENZA VACCINE (#1) 2024 02/09/2011 DEPRESSION SCREENING 05/02/2024 ZOSTER VACCINE (1 of 2) 2048 HIB VACCINE Aged Out No longer eligi ble based on patient's age to complete this topic MENINGOCOCCAL (Group B) VACC INE SHARED DECISION-MAKING Aged Out No longer eligibl e based on patient's age to complete this topic MENINGOCOCCAL GROUPS A/C/Y/W VACCINE Aged Out No longer eligible b ased on patient's age to complete this topic PNEUMOCOCCAL VACCINE Aged Out No long er eligible based on patient's age to complete this topic
--- OUTSIDE RECORDS SUMMARY | 2024-07-15 22:29 | XMS_ITS | Continuity of Care Document ---
Author Organization [facility] Address [address] [place] [address] Phone Care Team Providers Care Consulting Application Engineer Name Role Phone Bala Centeno MD, Jaren Unavailable Unavailable Allergies, Adverse Reactions, Alerts Substance Reaction Status Criticality No Known Allergies Active No Inform ation Procedures Procedure Date RADEX FOOT COMPL MINIMUM 3 VIEWS 2022 OFFICE/OUTPATIENT VISIT EST OFFICE/OUTPATIENT VISIT NEW Post Op Shoe Advance Directives Directive Yes / No Effective Date File Name No Information Encounters Encounter Description Practice Location Reason(s) For Visit Diagnoses Date Provider Providers Copied on Encounter OFFICE/OUTPAT IENT VISIT EST [facility] , [address], [place], [address], [place] [phone] [facility] Closed nondisplaced fracture of phalanx of right great toe with routine healing, unspecified phalanx, subsequent encounterBody mass index [BMI] 27.0-27.9, adult 3 Bala Eastman. [address], [place], [place], [id number] . tel: [phone] OFFICE/OUTPAT IENT VISIT NEW [facility] , [address], [place], [address], [place] tel:[phone] [facility] Body mass index [BMI] 27.0-27.9, adultClosed nondisplaced fracture of phalanx of right great toe, unspecified phalanx, initial encounter 2 Bala Eastman. [address], [place], [place], [id number] . tel: [phone] Family History Family Member Type Diagnosis Age At Onset No Information Payers Payer name Insurance type Covered constitution party ID Ellen valencia(s) Miscellaneous Work Comp OT 1 Social History Type Description Quantity Date Captured Comments Alcohol Use Details No Caffeine Use Details Tobacco Use Status Current non-smoker Smoking Status Never smoker Non-Smoking Tobacco Use Details : No Details Available : No Details Available Sex Male Vital Signs Date / Time: Height Weight BMI Pulse Rate Blood Pressure Temperature Respiratory Rate Body Surface Area Head Circumference Head Circ. Percentile Wt./Jose Miguel. Percentile BMI percentile Pulse Ox Inhaled Ox 10:13 AM 68.00 in 81.647 kg (180.00 lbs) 27.3 7 kg/m eter (2) Chief Complaint And Reason For Visit No Information Reason For Referral Reason For Referral No Information Plan Of Treatment Date Type Action Status Goal Lifestyle education regardin g diet completed Referral Ordered: RADEX FOOT COMPL MINIMUM 3 VIEWS RT ordered History Of Present Illness Encounter Date Complaint History Of Prese nt Illness No Information Functional Status Date Functional Assessmen t No Information Instructions Date Instruction Additional Infor mation Weight bearing as tolerated. Rel ated to Closed nondisplaced fracture of phalanx of right great toe with routine healing, unspecified phalanx, subsequent encounter Elevate whenever possible. Relat ed to Closed nondisplaced fracture of phalanx of right great toe with routine healing, unspecified phalanx, subsequent encounter Weight monitoring Related to Bod y mass index [BMI] 27.0-27.9, adult Lifestyle education regarding di et Related to Body mass index [BMI] 27.0-27.9, adult Assessments Type Assessment Date assessment Closed nondisplaced fracture of phalanx of right great toe with routine healing, unspecified phalanx, subsequent encounter assessment Body mass index [BMI] 27.0-27.9, adult Patient Care Teams Name Effective Dates (start - stop) Status Members No Information
--- NOTE | 2024-07-15 22:30 | ECG_ITS ---
Test Date: 2024-07-15 22:34:06 Measurements Intervals [place] Rate: 106 P: 46 NE: 131 QRS: 35 QRSD: 102 T: 29 QT: 316 QTc: 420 Interpretive Statements SINUS TACHYCARDIA ABNORMAL RHYTHM ECG No previous ECG available for comparison Electronically Signed On 07-16-2024 15:24:10 CDT by Isrrael Moon M.D.
--- NOTE | 2024-07-15 22:35 | PC.NURSE ---
Patient's friend, griffin Casillas. States he will come pick the patient up when discharged. Number to call [phone]
[2024-07-15 22:46] LABS: Basophils Percent Auto 0.3 % (0.2-1.2); Eosinophils Absolute Auto 0.1 K/mm3 (0-0.3); Eosinophils Percent Auto 0.6 % (0-4.4); Hematocrit 45.6 % (42.0-52.0); Hemoglobin 16.8 g/dL (14.0-18.0); Immature Granulocyte Absolute 0.04 K/mm3 (0.00-0.031); Immature Granulocyte Percent A 0.4 % (0-0.5); Lymphocytes Absolute Auto 2.99 K/mm3 (0.9-3.2); Lymphocytes Percent Auto 29.4 % (18.3-44.2); Mean Corpuscular HGB Conc 36.8 g/dl (32-36); Mean Corpuscular Hemoglobin 32.7 pg (26-34); Mean Corpuscular Volume 88.7 fl (80-100); Mean Platelet Volume 10.1 fl (7.4-10.4); Monocytes Absolute Auto 0.6 K/mm3 (0.1-0.6); Monocytes Percent Auto 6.2 % (2.6-8.5); Neutrophils Absolute Auto 6.4 K/mm3 (1.3-6.7); Neutrophils Percent Auto 63.1 % (45.5-73.1); Platelet Count Result 289 k/mm3 (150-375); Red Blood Count 5.14 M/mm3 (4.6-6.20); Red Cell Distribution Width 12.1 % (11.5-14.5); White Blood Count 10.2 K/mm3 (4.5-10.0)
[2024-07-15 22:56] LABS: Ethanol 248 mg/dL (<10)
[2024-07-15 22:58] LABS: INR 0.9; Prothrombin Time 12.6 Seconds (11.1-14.7)
[2024-07-15 22:59] LABS: Partial Thromboplastin Time 27.2 Seconds (22.3-36.8)
[2024-07-15 23:01] LABS: Alanine Aminotransferase 45 U/L (6-50); Alkaline Phosphatase 135 U/L (38-126); Anion Gap 16 mmol/L (4-12); Aspartate Amino Transferase 36 U/L (17-59); Bilirubin,Total 1.1 mg/dL (0.2-1.3); Blood Urea Nitrogen 10 mg/dL (9-20); Calcium 8.8 mg/dL (8.4-10.2); Carbon Dioxide 21 mmol/L (22-30); Chloride 107 mmol/L (98-107); Estimated CRCL calculation 92 ml/min; Estimated Glomerular Filt Rate > 60; Glucose 110 mg/dL (65-110); Lipase 100 U/L (23-300); Potassium 4.2 mmol/L (3.4-5.0); Sodium 144 mmol/L (137-145)
[2024-07-15 23:16] LABS: Troponin I < 0.012 ng/mL (0.000-0.034)
--- NOTE | 2024-07-15 23:26 | PC.NURSE ---
Call x1 for chest xray, patient not in waiting room or outside.
--- NOTE | 2024-07-15 23:57 | PC.NURSE ---
Call x2 for radiology. Patient not in waiting room or outside.
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
--- OUTSIDE RECORDS SUMMARY | 2024-07-16 00:05 | XMS_ITS | Continuity of Care Document ---
Author Organization [facility] Address [address] [place] [address] Phone Care Team Providers Care Stakeholder Manager Name Role Phone Bala Centeno MD, Jaren [...] Copied on Encounter OFFICE/OUTPAT IENT VISIT EST [facility] , [address], [place], [address], [place] [phone] [facility] Closed nondisplaced fracture of phalanx of right great toe with routine healing, unspecified phalanx, subsequent encounterBody mass index [BMI] 27.0-27.9, adult 3 Bala Eastman. [address], [place], [place], [address] . tel: [phone] OFFICE/OUTPAT IENT VISIT NEW [facility] , [address], [place], [address], [place] tel:[phone] [facility] Body mass index [BMI] 27.0-27.9, adultClosed nondisplaced fracture of phalanx of right great toe, unspecified phalanx, initial encounter 2 Bala Eastman. [address], [place], [place], [address] . tel: [phone] Family History Family Member Type Diagnosis Age At Onset No Information Payers Payer name Insurance type Covered green party ID Ellen valencia(s) Miscellaneous Work Comp [...]
--- OUTSIDE RECORDS SUMMARY | 2024-07-16 00:05 | XMS_ITS | Referral Summary ---
Author Organization [facility] [employer] Address [address] [place] [address] Care Team Providers Care Care Attendant Name Role Phone Unavailable Primary Care Provider Unavailabl e Source Comments [facility],non-owned Affiliates and Associated Physician Practices is amultiple site organization consisting of ambulatory clinics and hospital sitesin [place], [place], [place] and [place]. This disclosure is being madepursuant to the Care Everywhere program and may not contain all information available regarding this patient. Last updated 18.[facility] Allergies No known active allergies Active Problems [...]
--- OUTSIDE RECORDS SUMMARY | 2024-07-16 00:05 | XMS_ITS | Clinical Summary ---
Author Organization [facility] [employer] Address [address] [place] [address] Care Team Providers Care Freezer Person Name Role Phone Unavailable Primary Care Provider Unavailabl e Source Comments [facility] [employer],non-owned Affiliates and Associated Physician Practices is amultiple site organization consisting of ambulatory clinics and hospital sitesin [place], [place], [place] and [place]. This disclosure is being madepursuant to the Care Everywhere program and may not contain all information available regarding this patient. Last updated 18.[employer] Allergies No known active allergies Active Problems [...]
== END 2024-07-16 00:20 | disposition left against medical advice (07) ==
PROVIDERS: Emergency Provider Student in an Organized Health Care Education/Training Program
DX: R07.9 Chest pain, unspecified (principal)
CPT/HCPCS: 36415; 80053; 82077; 83690; 84484; 85025; 85610; 85730; 93005; 99199

== ENCOUNTER 2024-07-17 00:04 | Emergency (ER) | payer SELFPAY ==
--- NOTE | ~2024-07-17 | XR_ITS ---
CHEST RADIOGRAPH, PA AND LATERAL CLINICAL HISTORY: chest pain RIGHT SIDE AND RIGHT ARM NUMBNESS . COMPARISON: 06/18/2021 TECHNIQUE: PA and lateral views of the chest. FINDINGS The cardiomediastinal silhouette is unremarkable. Right middle lobe infiltrate is identified. The remainder of the lungs are clear. IMPRESSION: Right middle lobe infiltrate. Reviewed, dictated and finalized at location A.
[2024-07-17 00:05] VITALS: BP 134/100; PULSE 97; RESP 17; TEMP 36.6; O2SAT 99
--- OUTSIDE RECORDS SUMMARY | 2024-07-17 00:06 | XMS_ITS | Clinical Summary ---
Author Organization [facility] [employer] Address [address] [place] [address] Care Team Providers Care Sergeant Of Corrections Name Role Phone Unavailable Primary Care Provider Unavailabl e Source Comments [facility] [employer],non-owned Affiliates and Associated Physician Practices is amultiple site organization consisting of ambulatory clinics and hospital sitesin [place], [place], [place] and [place]. This disclosure is being madepursuant to the Care Everywhere program and may not contain all information available regarding this patient. Last updated 18.[employer] Allergies No known active allergies Active Problems [...]
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
--- OUTSIDE RECORDS SUMMARY | 2024-07-17 00:06 | XMS_ITS | Referral Summary ---
Author Organization [facility] [employer] Address [address] [place] [address] Care Team Providers Care Director Of Primary Care Name Role Phone Unavailable Primary Care Provider Unavailabl e Source Comments [facility] [employer],non-owned Affiliates and Associated Physician Practices is amultiple site organization consisting of ambulatory clinics and hospital sitesin [place], [place], [place] and [place]. This disclosure is being madepursuant to the Care Everywhere program and may not contain all information available regarding this patient. Last updated 18.[employer] Allergies No known active allergies Active Problems [...]
--- OUTSIDE RECORDS SUMMARY | 2024-07-17 00:06 | XMS_ITS | Continuity of Care Document ---
Author Organization [facility] Address [address] [place] [address] Phone Care Team Providers Care Electrician Third Name Role Phone Bala Centeno MD, Jaren [...] IENT VISIT EST [facility] , [address], [place], [address], [place] [phone] [facility] Closed nondisplaced fracture of phalanx of right great toe with routine healing, unspecified phalanx, subsequent encounterBody mass index [BMI] 27.0-27.9, adult 3 Bala Eastman. [address], [place], [place], [id number] . tel: [phone] OFFICE/OUTPAT IENT VISIT NEW [facility] , [address], [place], [address], [place] tel:[phone] [facility] Body mass index [BMI] 27.0-27.9, adultClosed nondisplaced fracture of phalanx of right great toe, unspecified phalanx, initial encounter 2 Bala Eastman. [address], [place], [place], [address] . tel: [phone] Family History Family Member Type Diagnosis Age At Onset No Information Payers Payer name Insurance type Covered republican ID Ellen valencia(s) Miscellaneous Work Comp OT [...]
--- NOTE | 2024-07-17 00:08 | ECG_ITS ---
Test Date: 2024-07-17 00:15:27 Measurements Intervals [place] Rate: 98 P: 53 PA: 129 QRS: 31 QRSD: 97 T: 32 QT: 327 QTc: 418 Interpretive Statements SINUS RHYTHM Compared to ECG 07/15/2024 22:34:06 Sinus tachycardia no longer present Electronically Signed On 07-17-2024 16:48:33 CDT by Candace Robb M.D.
[2024-07-17 00:38] VITALS: O2SAT 99
[2024-07-17 00:55] LABS: Basophils Percent Auto 0.2 % (0.2-1.2); Eosinophils Absolute Auto 0.1 K/mm3 (0-0.3); Eosinophils Percent Auto 0.7 % (0-4.4); Hematocrit 44.2 % (42.0-52.0); Hemoglobin 16.2 g/dL (14.0-18.0); Immature Granulocyte Absolute 0.04 K/mm3 (0.00-0.031); Immature Granulocyte Percent A 0.5 % (0-0.5); Lymphocytes Absolute Auto 2.04 K/mm3 (0.9-3.2); Lymphocytes Percent Auto 24.1 % (18.3-44.2); Mean Corpuscular HGB Conc 36.7 g/dl (32-36); Mean Corpuscular Hemoglobin 32.1 pg (26-34); Mean Corpuscular Volume 87.7 fl (80-100); Mean Platelet Volume 10.2 fl (7.4-10.4); Monocytes Absolute Auto 0.5 K/mm3 (0.1-0.6); Monocytes Percent Auto 5.6 % (2.6-8.5); Neutrophils Absolute Auto 5.8 K/mm3 (1.3-6.7); Neutrophils Percent Auto 68.9 % (45.5-73.1); Platelet Count Result 281 k/mm3 (150-375); Red Blood Count 5.04 M/mm3 (4.6-6.20); Red Cell Distribution Width 11.9 % (11.5-14.5); White Blood Count 8.5 K/mm3 (4.5-10.0)
[2024-07-17 01:08] LABS: Partial Thromboplastin Time 27.8 Seconds (22.3-36.8)
[2024-07-17 01:13] LABS: Alanine Aminotransferase 38 U/L (6-50); Albumin Level 4.8 g/dL (3.5-5.1); Alkaline Phosphatase 137 U/L (38-126); Anion Gap 14 mmol/L (4-12); Aspartate Amino Transferase 30 U/L (17-59); Bilirubin,Total 1.3 mg/dL (0.2-1.3); Blood Urea Nitrogen 9 mg/dL (9-20); Calcium 8.9 mg/dL (8.4-10.2); Carbon Dioxide 26 mmol/L (22-30); Chloride 102 mmol/L (98-107); Estimated Glomerular Filt Rate > 60; Glucose 99 mg/dL (65-110); Lipase 103 U/L (23-300); Potassium 3.9 mmol/L (3.4-5.0); Sodium 142 mmol/L (137-145)
[2024-07-17 01:24] LABS: Troponin I < 0.012 ng/mL (0.000-0.034)
--- NOTE | 2024-07-17 04:59 | PC.NURSE ---
Patient called for room assignment @ 0045. No answer. Patient not seen in waiting room or outside.
--- NOTE | 2024-07-17 05:01 | PC.NURSE ---
Patient called for room placement at 0457. No answer. Pt not seen in waiting room or outside.
--- OUTSIDE RECORDS SUMMARY | 2024-07-17 05:05 | XMS_ITS | Continuity of Care Document ---
Author Organization [facility] Address [address] [place] [address] Phone Care Team Providers Care Psychology Associate Name Role Phone Bala Centeno MD, Jaren [...] Copied on Encounter OFFICE/OUTPAT IENT VISIT EST [facility] , [address], [place], [address], [place] [phone] [facility] Closed nondisplaced fracture of phalanx of right great toe with routine healing, unspecified phalanx, subsequent encounterBody mass index [BMI] 27.0-27.9, adult 3 Bala Eastman. [address], [place], [place], [address] . tel: [phone] OFFICE/OUTPAT IENT VISIT NEW [facility] , [address], [place], [address], [place] tel:[phone] [facility] Body mass index [BMI] 27.0-27.9, adultClosed nondisplaced fracture of phalanx of right great toe, unspecified phalanx, initial encounter 2 Bala Eastman. [address], [place], [place], [address] . tel: [phone] Family History Family Member Type Diagnosis Age [...]
--- OUTSIDE RECORDS SUMMARY | 2024-07-17 05:05 | XMS_ITS | Referral Summary ---
Author Organization [facility] [employer] Address [address] [place] [address] Care Team Providers Care Cnc Field Service Engineer Name Role Phone Unavailable Primary Care Provider Unavailabl e Source Comments [facility],non-owned Affiliates and Associated Physician Practices is amultiple site organization consisting of ambulatory clinics and hospital sitesin [place], [place], [place] and [place]. This disclosure is being madepursuant to the Care Everywhere program and may not contain all information available regarding this patient. Last updated 18.[employer] [facility] Allergies No known active allergies Active Problems [...]
--- OUTSIDE RECORDS SUMMARY | 2024-07-17 05:05 | XMS_ITS | Clinical Summary ---
Author Organization [facility] Address [address] [place] [address] Care Team Providers Care Change Management Expert Name Role Phone Unavailable Primary Care Provider Unavailabl e Source Comments [facility],non-owned Affiliates and Associated Physician Practices is amultiple site organization consisting of ambulatory clinics and hospital sitesin [place], [place], [place] and [place]. This disclosure is being madepursuant to the Care Everywhere program and may not contain all information available regarding this patient. Last updated 18.[facility] Allergies No known active allergies Active Problems [...]
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
== END 2024-07-17 04:57 | disposition left against medical advice (07) ==
PROVIDERS: Emergency Provider Emergency Medicine
DX: R07.9 Chest pain, unspecified (principal)
CPT/HCPCS: 36415; 71046; 80053; 83690; 84484; 85025; 85610; 85730; 93005; 99199

== ENCOUNTER 2024-08-01 05:46 | Emergency (ER) | payer OTHER, SELFPAY ==
--- NOTE | ~2024-08-01 | US_ITS ---
Limited Abdominal Sonogram: Real-time sonographic imaging of the right upper quadrant was performed. Clinical History: Epigastric pain Findings: The liver appears normal with no evidence of mass lesion or bile duct dilatation. Main por francois vein demonstrates normal direction of flow. The gallbladder is well distended, and appears normal with no evidence of gallstone or wall thickening. The common bile duct measures 3 mm. The visualize d pancreas, aorta, and IVC are unremarkable. Impression: No significant abnormality seen. Reviewed, dictated and finalized at location . Impression: No significant abnormality seen.
--- OUTSIDE RECORDS SUMMARY | 2024-08-01 05:49 | XMS_ITS | Continuity of Care Document ---
Author Organization [facility] Address [address] [place] [address] Phone Care Team Providers Care Ripsaw Grader Name Role Phone Bala Centeno MD, Jaren [...] Copied on Encounter OFFICE/OUTPAT IENT VISIT EST [facility] , [address], [place], [address], [place] [phone] [facility] Closed nondisplaced fracture of phalanx of right great toe with routine healing, unspecified phalanx, subsequent encounterBody mass index [BMI] 27.0-27.9, adult 3 Bala Eastman. [address], [place], [place], [id number] . tel: [phone] OFFICE/OUTPAT IENT VISIT NEW [facility] , [address], [place], [address], [place] tel:[phone] [facility] Body mass index [BMI] 27.0-27.9, adultClosed nondisplaced fracture of phalanx of right great toe, unspecified phalanx, initial encounter 2 Bala Eastman. [address], [place], [place], [address] . tel: [phone] Family History Family Member Type Diagnosis Age At Onset No Information Payers Payer name Insurance type Covered alliance party ID Ellen valencia(s) Miscellaneous Work Comp [...]
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
[2024-08-01 05:52] VITALS: BP 144/98; PULSE 97; RESP 15; TEMP 36.2; O2SAT 100
--- NOTE | 2024-08-01 05:55 | ECG_ITS ---
Test Date: 2024-08-01 05:57:55 Measurements Intervals [place] Rate: 86 P: 60 OH: 137 QRS: 26 QRSD: 100 T: 40 QT: 327 QTc: 393 Interpretive Statements SINUS RHYTHM BASELINE ARTIFACT- I, II, III, AVR, AVL, AVF, V1-V6 NORMAL ECG Compared to ECG 07/17/2024 00:15:27 No significant changes Electronically Signed On 08-01-2024 06:10:52 CDT by Frank Sellers D.O.
--- NOTE | 2024-08-01 05:57 | ED.ABDPAIN ---
HPI - Abdominal Pain General Chief Complaint: Chest Pain <Kristopher Hicks MD - Last Filed: 08/01/24 20:20> Stated Complaint: arm numbness, abd pain <Kristopher Hicks MD - Last Filed: 08/01/24 20:20> Time Seen by Provider: 08/01/24 05:52 <Kristopher Hicks MD - Last Filed: 08/01/24 20:20> History of Present Illness HPI narrative: 23-year-old male with history of alcohol abuse. He presents to the emergency depart with burning epigastric and chest discomfort. Intermittent for last several weeks. He was here several weeks ago couple times but left without being seen by provider. Denies any gallstones history, no history pancreatitis to his knowledge. Does not take any medications for this he states that when he gets the symptoms he just drinks more. Does not clinically appear intoxicated presently. No nausea or vomiting. No shortness of breath. He has a myriad of other medical complaints that do not seem related any does not have a primary doctor. Patient is not in any distress. <Kristopher Hicks MD - Last Filed: 08/01/24 20:20> Related Data Allergies/Adverse Reactions: Allergies Allergy/AdvReac Type Severity Reaction Status Date / Time No Known Allergies Allergy Verified 08/01/24 05:47 <Kristopher Hicks MD - Last Filed: 08/01/24 20:20> Review of Systems Review of Systems: As reviewed above in HPI <Kristopher Hicks MD - Last Filed: 08/01/24 20:20> REPLACED BY [facility] Past Medical History Medical History: Medical History Asthma <Kristopher Hicks MD - Last Filed: 08/01/24 20:20> Surgical History Surgical History: Surgical History No significant past surgical history <Kristopher Hicks MD - Last Filed: 08/01/24 20:20> Family History Family History: Family History Father Alive and well Mother Alive and well <Kristopher Hicks MD - Last Filed: 08/01/24 20:20> Social History Social History: Social History Smoking status: Never smoker Additional smoking assessment comments: Attmepted to smoke but it gives him anxiety Alcohol intake: current Substance use: never Living arrangements: with family Occupation/Education: unemployed <Kristopher Hicks MD - Last Filed: 08/01/24 20:20> Exam Narrative: GENERAL: [Well-appearing, well-nourished, and in no acute distress.] HEAD: [Normocephalic, atraumatic.] EYES: [PERRLA and EOMI.] ENT: Nares clear, no rhinorrhea or epistaxis. Mucous membranes moist. NECK: Supple. CHEST: [Clear to auscultation. No respiratory distress.] HEART: [Regular rate and rhythm]. No murmur heard. [Normal peripheral pulses.] ABDOMEN: [Soft, nondistended], [nontender], [No rigidity or guarding] EXTREMITIES: Normal range of motion. [No edema.] SKIN: Heavily tattooed but otherwise warm and dry, no rashes. NEURO: [No focal deficits]. Alert and oriented [x3.] PSYCH: [Normal mood and affect.] <Kristopher Hicks MD - Last Filed: 08/01/24 20:20> Course Reevaluation(s) Reevaluation #1: At time of re-evaluation patient has no complaints and patient's ultrasound was negative. Patient is being discharged home with close follow-up with primary care physician. <Rico Curtis MD - Last Filed: 08/01/24 18:10> Vital Signs Vital signs: Vital Signs Temperature 36.2 C L 08/01/24 05:52 Pulse Rate 97 08/01/24 05:52 Respiratory Rate 15 08/01/24 05:52 Blood Pressure 144/98 H 08/01/24 05:52 Pulse Oximetry 100 08/01/24 05:52 Temperature 36.2 C L 08/01/24 05:52 Pulse Rate 91 08/01/24 08:00 Respiratory Rate 18 08/01/24 08:00 Blood Pressure 137/92 H 08/01/24 08:00 Pulse Oximetry 100 08/01/24 08:00 <Kristopher Hicks MD - Last Filed: 08/01/24 20:20> Vital Signs Temperature 36.2 C L 08/01/24 05:52 Pulse Rate 97 08/01/24 05:52 Respiratory Rate 15 08/01/24 05:52 Blood Pressure 144/98 H 08/01/24 05:52 Pulse Oximetry 100 08/01/24 05:52 Temperature 36.2 C L 08/01/24 05:52 Pulse Rate 91 08/01/24 08:00 Respiratory Rate 18 08/01/24 08:00 Blood Pressure 137/92 H 08/01/24 08:00 Pulse Oximetry 100 08/01/24 08:00 <Rico Curtis MD - Last Filed: 08/01/24 18:10> MDM - Abdominal Pain MDM Narrative Medical decision making narrative: 23-year-old male with history of alcohol abuse. He presents with epigastric burning and chest discomfort. Has not taken anything for symptoms at home. Otherwise normal vital signs, not in any distress. Soft nontender nondistended abdomen. He was here several times for this but left without being seen. He has an unremarkable examination overall appears well and not in any distress. Suspicion presently is for gastritis, esophagitis, GERD versus peptic ulcer disease from drinking. Possibility for pancreatitis or cholelithiasis but low suspicion for infectious pathology. Basic laboratory studies were drawn, EKG, CBC, CMP, LFTs, lipase. Alcohol level ordered. He was given a combination of medications including Pepcid, Protonix, Zofran and D5 LR bolus. EKG shows sinus rhythm, no signs of ischemia. Patient's workup shows no leukocytosis or anemia. Normal platelet count. Electrolytes largely unremarkable. Normal renal function, normal glucose. His bilirubin is elevated 2.8 which is a change from his prior levels but he has no other LFT elevations. Lipase is negative. Alcohol levels negative. Right upper quadrant ultrasound was ordered for further delineation. Upon re-evaluation patient had improvement in symptom control. Patient will be signed out to oncoming ER physician pending right upper quadrant ultrasound results and likely discharge home based on findings. <Kristopher Hicks MD - Last Filed: 08/01/24 20:20> Medical Records Attestation: I reviewed the patient's medical records. <Kristopher Hicks MD - Last Filed: 08/01/24 20:20> Lab Data Attestation: I reviewed the patient's lab results. <Kristopher Hicks MD - Last Filed: 08/01/24 20:20> Result diagrams: 08/01/24 05:57 08/01/24 05:57 <Kristopher Hicks MD - Last Filed: 08/01/24 20:20> Labs: Lab Results 08/01/24 Range/Units 05:57 WBC 8.8 (4.5-10.0) K/mm3 RBC 5.40 (4.6-6.20) M/mm3 Hgb 17.4 (14.0-18.0) g/dL Hct 47.6 (42.0-52.0) % MCV 88.1 (80-100) fl MCH 32.2 (26-34) pg MCHC 36.6 H (32-36) g/dl RDW 12.2 (11.5-14.5) % Plt Count 294 (150-375) k/mm3 MPV 10.2 (7.4-10.4) fl Immature Gran % (Auto) 0.3 (0-0.5) % Neut % (Auto) 59.2 (45.5-73.1) % Lymph % (Auto) 31.1 (18.3-44.2) % Robeson % (Auto) 7.7 (2.6-8.5) % Eos % (Auto) 1.2 (0-4.4) % Baso % (Auto) 0.5 (0.2-1.2) % Lymph # (Auto) 2.74 (0.9-3.2) K/mm3 Robeson # (Auto) 0.7 H (0.1-0.6) K/mm3 Eos # (Auto) 0.1 (0-0.3) K/mm3 Baso # (Auto) 0.0 (0.0-0.1) K/mm3 Abs Immat Gran (auto) 0.03 (0.00-0.031) K/mm3 Absolute Neuts (auto) 5.2 (1.3-6.7) K/mm3 Absolute Nucleated RBC 0.000 (0.0-0.012) K/mm3 Nucleated RBC % 0.0 (0.0-0.2) % Sodium 139 (137-145) mmol/L Potassium 3.5 (3.4-5.0) mmol/L Chloride 103 (98-107) mmol/L Carbon Dioxide 23 (22-30) mmol/L Anion Gap 13 H (4-12) mmol/L BUN 7 L (9-20) mg/dL Creatinine 1.05 (0.7-1.3) mg/dL Estim Creat Clear Calc 107 ml/min Estimated GFR > 60 (59 - ) Glucose 98 (65-110) mg/dL Calcium 9.2 (8.4-10.2) mg/dL Total Bilirubin 2.8 H (0.2-1.3) mg/dL AST 41 (17-59) U/L ALT 45 (6-50) U/L Alkaline Phosphatase 132 H (38-126) U/L Total Protein 8.0 (6.3-8.2) g/dL Albumin 4.9 (3.5-5.1) g/dL Lipase 91 (23-300) U/L Ethyl Alcohol < 10 (<10) mg/dL <Kristopher Hicks MD - Last Filed: 08/01/24 20:20> Lab Results 08/01/24 Range/Units 05:57 WBC 8.8 (4.5-10.0) K/mm3 RBC 5.40 (4.6-6.20) M/mm3 Hgb 17.4 (14.0-18.0) g/dL Hct 47.6 (42.0-52.0) % MCV 88.1 (80-100) fl MCH 32.2 (26-34) pg MCHC 36.6 H (32-36) g/dl RDW 12.2 (11.5-14.5) % Plt Count 294 (150-375) k/mm3 MPV 10.2 (7.4-10.4) fl Immature Gran % (Auto) 0.3 (0-0.5) % Neut % (Auto) 59.2 (45.5-73.1) % Lymph % (Auto) 31.1 (18.3-44.2) % Robeson % (Auto) 7.7 (2.6-8.5) % Eos % (Auto) 1.2 (0-4.4) % Baso % (Auto) 0.5 (0.2-1.2) % Lymph # (Auto) 2.74 (0.9-3.2) K/mm3 Robeson # (Auto) 0.7 H (0.1-0.6) K/mm3 Eos # (Auto) 0.1 (0-0.3) K/mm3 Baso # (Auto) 0.0 (0.0-0.1) K/mm3 Abs Immat Gran (auto) 0.03 (0.00-0.031) K/mm3 Absolute Neuts (auto) 5.2 (1.3-6.7) K/mm3 Absolute Nucleated RBC 0.000 (0.0-0.012) K/mm3 Nucleated RBC % 0.0 (0.0-0.2) % Sodium 139 (137-145) mmol/L Potassium 3.5 (3.4-5.0) mmol/L Chloride 103 (98-107) mmol/L Carbon Dioxide 23 (22-30) mmol/L Anion Gap 13 H (4-12) mmol/L BUN 7 L (9-20) mg/dL Creatinine 1.05 (0.7-1.3) mg/dL Estim Creat Clear Calc 107 ml/min Estimated GFR > 60 (59 - ) Glucose 98 (65-110) mg/dL Calcium 9.2 (8.4-10.2) mg/dL Total Bilirubin 2.8 H (0.2-1.3) mg/dL AST 41 (17-59) U/L ALT 45 (6-50) U/L Alkaline Phosphatase 132 H (38-126) U/L Total Protein 8.0 (6.3-8.2) g/dL Albumin 4.9 (3.5-5.1) g/dL Lipase 91 (23-300) U/L Ethyl Alcohol < 10 (<10) mg/dL <Rico Curtis MD - Last Filed: 08/01/24 18:10> Imaging Data Radiologist's impression: ITS Impressions Abdomen Ultrasound 08/01/24 07:34 Impression: No significant abnormality seen. <Kristopher Hicks MD - Last Filed: 08/01/24 20:20> ITS Impressions Abdomen Ultrasound 08/01/24 07:34 Impression: No significant abnormality seen. <Rico Curtis MD - Last Filed: 08/01/24 18:10> Discharge Plan Discharge Clinical Impression: Colicky epigastric pain, Elevated bilirubin <Kristopher Hicks MD - Last Filed: 08/01/24 20:20> Patient Disposition: Home, Self-Care <Kristopher Hicks MD - Last Filed: 08/01/24 20:20> Condition: Stable <Kristopher Hicks MD - Last Filed: 08/01/24 20:20> Patient Language: Welsh <Kristopher Hicks MD - Last Filed: 08/01/24 20:20> Prescriptions: No Action amoxicillin 875 mg tablet 875 mg PO Q12H 10 Days Qty: 20 0RF pantoprazole [Protonix] 40 mg tablet,delayed release (DR/EC) 40 mg PO HS 28 Days Qty: 28 0RF <Kristopher Hicks MD - Last Filed: 08/01/24 20:20> Follow-up/Referrals: PHYSICIAN,CRIME DATA SPECIALIST [Primary Care Provider] - <Kristopher Hicks MD - Last Filed: 08/01/24 20:20>
[2024-08-01] MEDS: DEXTROSE 5%/LACTATED RINGERS 1,000 ML 999 ML IV CONT (05:58)
[2024-08-01] MEDS: PANTOPRAZOLE SODIUM IV 40 MG VIAL IV PUSH (05:58)
[2024-08-01] MEDS: MAG HYDROX/AL HYDROX/SIMETH 30 ML UDC PO (05:58)
[2024-08-01] MEDS: FAMOTIDINE 20 MG/2 ML VIAL IV PUSH (05:58)
[2024-08-01 06:05] LABS: Basophils Percent Auto 0.5 % (0.2-1.2); Eosinophils Absolute Auto 0.1 K/mm3 (0-0.3); Eosinophils Percent Auto 1.2 % (0-4.4); Hematocrit 47.6 % (42.0-52.0); Hemoglobin 17.4 g/dL (14.0-18.0); Immature Granulocyte Absolute 0.03 K/mm3 (0.00-0.031); Immature Granulocyte Percent A 0.3 % (0-0.5); Lymphocytes Absolute Auto 2.74 K/mm3 (0.9-3.2); Lymphocytes Percent Auto 31.1 % (18.3-44.2); Mean Corpuscular HGB Conc 36.6 g/dl (32-36); Mean Corpuscular Hemoglobin 32.2 pg (26-34); Mean Corpuscular Volume 88.1 fl (80-100); Mean Platelet Volume 10.2 fl (7.4-10.4); Monocytes Absolute Auto 0.7 K/mm3 (0.1-0.6); Monocytes Percent Auto 7.7 % (2.6-8.5); Neutrophils Absolute Auto 5.2 K/mm3 (1.3-6.7); Neutrophils Percent Auto 59.2 % (45.5-73.1); Platelet Count Result 294 k/mm3 (150-375); Red Cell Distribution Width 12.2 % (11.5-14.5); White Blood Count 8.8 K/mm3 (4.5-10.0)
[2024-08-01 06:15] LABS: Alanine Aminotransferase 45 U/L (6-50); Albumin Level 4.9 g/dL (3.5-5.1); Alkaline Phosphatase 132 U/L (38-126); Anion Gap 13 mmol/L (4-12); Aspartate Amino Transferase 41 U/L (17-59); Bilirubin,Total 2.8 mg/dL (0.2-1.3); Blood Urea Nitrogen 7 mg/dL (9-20); Calcium 9.2 mg/dL (8.4-10.2); Carbon Dioxide 23 mmol/L (22-30); Chloride 103 mmol/L (98-107); Estimated CRCL calculation 107 ml/min; Estimated Glomerular Filt Rate > 60; Glucose 98 mg/dL (65-110); Lipase 91 U/L (23-300); Potassium 3.5 mmol/L (3.4-5.0); Sodium 139 mmol/L (137-145)
[2024-08-01 06:20] LABS: Ethanol < 10 mg/dL (<10)
--- OUTSIDE RECORDS SUMMARY | 2024-08-01 06:28 | XMS_ITS | Continuity of Care Document ---
Author Organization [facility] Address [address] [place] [address] Phone Care Team Providers Care Engineering And Operations Director Name Role Phone Bala Centeno MD, Jaren [...] Copied on Encounter OFFICE/OUTPAT IENT VISIT EST [facility] , [address], [place], [address], [place] [phone] [facility] Closed nondisplaced fracture of phalanx of right great toe with routine healing, unspecified phalanx, subsequent encounterBody mass index [BMI] 27.0-27.9, adult 3 Bala Eastman. [address], [place], [place], [address] . tel: [phone] OFFICE/OUTPAT IENT VISIT NEW [facility] , [address], [place], [address], [place] tel:[phone] [facility] Body mass index [BMI] 27.0-27.9, adultClosed nondisplaced fracture of phalanx of right great toe, unspecified phalanx, initial encounter 2 Bala Eastman. [address], [place], [place], [id number] . tel: [phone] Family History Family Member Type Diagnosis Age [...]
--- OUTSIDE RECORDS SUMMARY | 2024-08-01 06:28 | XMS_ITS | Clinical Summary ---
Author Organization [email or web address] Address [address] [place] [address] Care Team Providers Care [place] Coiler Name Role Phone Unavailable Primary Care Provider Unavailabl e Source Comments [email or web address],non-owned Affiliates and Associated Physician Practices is amultiple site organization consisting of ambulatory clinics and hospital sitesin [place], [place], [place] and [place]. This disclosure is being madepursuant to the Care Everywhere program and may not contain all information available regarding this patient. Last updated 18.[email or web address] Allergies No known active allergies Active Problems [...]
[2024-08-01 06:30] VITALS: BP 130/95; PULSE 71; RESP 14; O2SAT 99
[2024-08-01 07:30] VITALS: BP 139/93; PULSE 86; RESP 18; O2SAT 100
[2024-08-01 08:00] VITALS: BP 137/92; PULSE 91; RESP 18; O2SAT 100
== END 2024-08-01 08:23 | disposition home or self-care (01) ==
PROVIDERS: Emergency Provider Student in an Organized Health Care Education/Training Program
DX: R10.13 Epigastric pain (principal); R17 Unspecified jaundice; J45.909 Unspecified asthma, uncomplicated
CPT/HCPCS: 36415; 76705; 80053; 82077; 83690; 85025; 93005; 96374; 96375; 99284; A9270; J2470; J7121